=== PATIENT | male | born 1950 | race Caucasian/White ===

== ENCOUNTER 2016-11-03 06:11 | Emergency (ER) | payer BC, OTHER ==
[~2016-11-03] VITALS: Ht 170.2 cm; Wt 76.7 kg
[2016-11-03 06:15] VITALS: TEMP 36.6; Ht 170.2 cm; Wt 76.7 kg
[2016-11-03] MEDS ORDERED: ALBUT/IPRATROP 3MG/0.5MG NEB 3 ML VIAL INH STA ×2 (06:33→08:17)
--- NOTE | 2016-11-03 06:37 | EMERGENCY ROOM VISIT NOTE ---
History Report prepared by Nohemi: Briana Dhaliwal Under the Supervision of: Dr. Franco Vizcaino M.D. First contact with patient: 06:28 Chief Complaint: CONGESTION Stated Complaint: HARD TO BREATHE,CONGESTION History of Present Illness The patient is a 66 year old male who presents to the Emergency Room with complaints of shortness of breath beginning over the last few days. The patient states that he has also had a sorethroat, headache, and sometimes a productive cough and that he was unable to sleep last night due to the pain. The patient denies having a fever. He states that he has been working in his basement for a week, which has mold. The patient states that he smokes and that he is not on any medication. He denies having a history of allergies or asthma. Source of History: patient Onset: the last few days Position: other (global) Quality: other (shortness of breath) Associated Symptoms: + headache, + sorethroat, No fevers Review of Systems See HPI for pertinent positives & negatives. A total of 10 systems reviewed and were otherwise negative. Past Medical & Surgical Medical Problems: (1) Shoulder sprain Family History No pertinent family history stated. Social History Smoking Status: Current Every Day Smoker Current/Historical Medications Scheduled Azithromycin (Zithromax Z-Azar), 1 PKT PO UD Prednisone (Prednisone), 50 MG PO DAILY Allergies Coded Allergies: No Known Allergies (Unverified , 11/03/16) Physical Exam Vital Signs Date Time Temp Pulse Resp B/P (MAP) Pulse Ox O2 Delivery O2 Flow Rate FiO2 11/03/16 09:26 75 18 161/90 95 11/03/16 08:40 77 16 163/103 99 Nebulizer 11/03/16 08:16 92 Room Air 11/03/16 07:58 94 Room Air 11/03/16 07:58 88 Room Air 11/03/16 07:47 80 22 144/88 94 Room Air 11/03/16 07:39 77 22 153/88 92 Room Air 11/03/16 07:20 73 11/03/16 07:17 93 Room Air 11/03/16 07:16 76 22 156/103 94 Room Air 11/03/16 06:58 95 Room Air 11/03/16 06:15 36.6 89 18 227/144 96 Room Air Physical Exam GENERAL: Patient is mild uncomfortable appearing and in minimal distress. HEENT: No acute trauma, normocephalic atraumatic, mucous membranes moist, no scleral icterus.Mild erythema of bilateral nares and posterior pharynx. NECK: No stridor, no adenopathy, no meningismus, trachea is midline. LUNGS: Faint wheezing at bases bilaterally. HEART: Regular rate and rhythm. No murmurs, rubs, gallops appreciated. ABDOMEN: Soft, nontender, bowel sounds positive, no masses appreciated, no peritonitis. BACK: No midline tenderness, no CVA tenderness EXTREMITIES: Normal motion all extremities, no cyanosis, no edema. NEUROLOGIC: Alert and oriented, no acute motor or sensory deficits, no focal weakness, cranial nerves grossly intact. SKIN: No rash, no jaundice, no diaphoresis. Medical Decision & Procedures ER Provider Diagnostic Interpretation: X ray results are stated below per my interpretation and the radiologist's interpretation. CHEST ONE VIEW PORTABLE HISTORY: Short of breath. COMPARISON: None. FINDINGS: No pneumothorax. No pleural effusions. The heart is mildly enlarged. The upper lung zones are clear. Hazy bibasilar densities with mild interstitial thickening. Prominence of the superior mediastinum favors a tortuous thoracic aorta. IMPRESSION: 1. Bibasilar hazy airspace opacity with mild interstitial thickening. This could be chronic or due to a nonspecific pneumonitis. 2. Prominence of the superior mediastinum which is likely secondary to the tortuous thoracic aorta. Electronically signed by: Vidal Wheatley M.D. 11/03/2016 7:43 AM Dictated Date/Time: 11/03/2016 7:40 AM Laboratory Results 11/03/16 06:50 Red Blood Count 4.87, Mean Corpuscular Volume 97.5, Mean Corpuscular Hemoglobin 33.3, Mean Corpuscular Hemoglobin Concent 34.1, Mean Platelet Volume 9.9, Neutrophils (%) (Auto) 71.6, Lymphocytes (%) (Auto) 16.2, Monocytes (%) (Auto) 10.6, Eosinophils (%) (Auto) 1.3, Basophils (%) (Auto) 0.2, Neutrophils # (Auto ) 6.38, Lymphocytes # (Auto) 1.45, Monocytes # (Auto) 0.95, Eosinophils # (Auto ) 0.12, Basophils # (Auto) 0.02 11/03/16 06:50 Test 11/03/16 06:50 White Blood Count 8.93 K/uL (4.8-10.8) Red Blood Count 4.87 M/uL (4.7-6.1) Hemoglobin 16.2 g/dL (14.0-18.0) Hematocrit 47.5 % (42-52) Mean Corpuscular Volume 97.5 fL (80-100) Mean Corpuscular Hemoglobin 33.3 pg (25-34) Mean Corpuscular Hemoglobin Concent 34.1 g/dl (32-36) Platelet Count 218 K/uL (130-400) Mean Platelet Volume 9.9 fL (7.4-10.4) Neutrophils (%) (Auto) 71.6 % Lymphocytes (%) (Auto) 16.2 % Monocytes (%) (Auto) 10.6 % Eosinophils (%) (Auto) 1.3 % Basophils (%) (Auto) 0.2 % Neutrophils # (Auto) 6.38 K/uL (1.4-6.5) Lymphocytes # (Auto) 1.45 K/uL (1.2-3.4) Monocytes # (Auto) 0.95 K/uL (0.11-0.59) Eosinophils # (Auto) 0.12 K/uL (0-0.5) Basophils # (Auto) 0.02 K/uL (0-0.2) RDW Standard Deviation 50.5 fL (36.4-46.3) RDW Coefficient of Variation 14.1 % (11.5-14.5) Immature Granulocyte % (Auto) 0.1 % Immature Granulocyte # (Auto) 0.01 K/uL (0.00-0.02) Anion Gap 6.0 mmol/L (3-11) Est Creatinine Clear Calc Drug Dose 76.0 ml/min Estimated GFR () 102.8 Estimated GFR (Non- 88.7 BUN/Creatinine Ratio 20.5 (10-20) Calcium Level 9.4 mg/dl (8.5-10.1) Troponin I < 0.015 ng/ml (0-0.045) Laboratory results as reviewed by me. Medications Administered Medications (Trade) Dose Ordered Sig/Julio Cesar Route Start Time Stop Time Status Last Admin Dose Admin Dexamethasone Sodium Phosphate (Decadron Inj) 10 mg NOW ONCE IV 8/12/17 06:45 11/03/16 06:46 DC 11/03/16 07:03 10 MG Albuterol/ Ipratropium (Duoneb) 3 ml NOW STAT INH 11/03/16 06:33 11/03/16 06:35 DC 11/03/16 07:03 3 ML Albuterol/ Ipratropium (Duoneb) 3 ml NOW STAT INH 11/03/16 08:17 11/03/16 08:18 DC 11/03/16 08:39 3 ML Azithromycin (Zithromax Tab) 500 mg NOW STAT PO 11/03/16 09:10 11/03/16 09:11 DC 11/03/16 09:17 500 MG Albuterol (Ventolin Hfa Inhaler) 2 puffs NOW ONCE INH 11/03/16 09:15 11/03/16 09:16 DC 11/03/16 09:17 2 PUFFS ECG Indication: SOB/dyspnea Rate (beats per minute): 73 Rhythm: normal sinus Findings: RBBB, no acute ischemic change, no ectopy ED Course 0629: The patient was evaluated in room B2. A complete history and physical exam was performed. 0633: Ordered Duoneb 3 ml INH. 0645: Ordered Decadron Inj 10 mg IV. 0724: The patient's blood pressure was rechecked and it was not in the 200's, so we are cancelling the Labetalol. 0816: The patient fell asleep and was mildly hypoxic. He will be given another breathing treatment. 0817: Ordered Duoneb 3 ml INH. 0910: Ordered Azithromycin 500 mg PO. 0911: He feels much better. I discussed his elevated blood pressure with him and that he should follow up with his PCP. 191: Ordered Albuterol 2 puffs INH. 0930: Reevaluated the patient. Discussed results and discharge instructions: He verbalized understanding and agreement. The patient is ready for discharge. Medical Decision 66 yr old male heavy smoker who has been working in moldy house arrives with sinus congestion, pneumonitis, and mild wheezing. Breathing treatment with some mild hypoxia though I susepect this was more post neb treatment as when I went in to talk with him O2 sats in upper 90s on RA. Repeat neb and doing well. Feeling much better. No clear evidence of overt fungal infection and denies immune suppression thus will treat as bronchitis in smoker and monitor as outpatient. HTN initially documented then EKG/Trop, but BP came down prior to requiring anti-hypertensives. Advised outpatient follow up for this. Medication Reconcilliation Current Medication List: was personally reviewed by me Blood Pressure Screening Patient's blood pressure: Elevated blood pressure Blood pressure disposition: Referred to PCP Impression Primary Impression: Pneumonitis Additional Impressions: Bronchitis Sinus congestion Hypertension Critical Care I have personally spent greater than 35 minutes of critical care time in the direct management of this patient. This was a life/limb threatening event. This includes time spent evaluating patient, direct bedside care, chart review, placing orders, interpretation of diagnostic studies, discussion with consultants, patient, and family members, as well as other required patient management activities. This 35 minutes is in excess of all separately billable procedures. Scribe Attestation The scribe's documentation has been prepared under my direction and personally reviewed by me in its entirety. I confirm that the note above accurately reflects all work, treatment, procedures, and medical decision making performed by me. Departure Information Dispostion Home / Self-Care Prescriptions Prednisone (PREDNISONE) 50 Mg Tab 50 MG PO DAILY for 5 Days, #5 TAB Prov: Franco Vizcaino M.D. 11/03/16 Azithromycin (ZITHROMAX Z-AZAR) 250 Mg Tab 1 PKT PO UD, #1 PKT Prov: Franco Vizcaino M.D. 11/03/16 Referrals No Doctor, Assigned (PCP) Patient Instructions My [facility] Additional Instructions Keep well hydrated and avoid further exposure to mold and other allergens. Use a mask if you are working in these environments. Return if worsening breathing, chest pain, headache, fevers or other concerns. Please discuss your symptoms with your primary provider. Your blood pressure was elevated during this visit. This is quite common in many people who are being evaluated in the Emergency Department for many reasons. However, it is important that you have your Primary Care Provider recheck your blood pressure and discuss whether treatment will be needed. terminal gauger elevated blood pressure can lead to strokes, heart attacks, kidney failure amongst other medical issues. If you develop severe headaches, chest pain, weakness in arms or legs, or other concerning symptoms call 911. Problem Qualifiers
[2016-11-03] MEDS ORDERED: DEXAMETHASONE SOD INJ 10 MG/ML VIAL IV ONE (06:45)
[2016-11-03] MEDS ORDERED: LABETALOL HCL IV 5 MG/ML 20ML IV STA (07:03)
[2016-11-03 07:13] LABS: BASO % 0.2 %; BASO ABS # 0.02 K/uL (0-0.2); COMPLETE YES; EOS % 1.3 %; HEMATOCRIT 47.5 % (42-52); IG% 0.1 %; LYMPH % 16.2 %; LYMPH ABS # 1.45 K/uL (1.2-3.4); MEAN CELL VOLUME 97.5 fL (80-100); MEAN CORPUSCULAR HEMOGLOBIN 33.3 pg (25-34); MEAN CORPUSCULAR HGB CONC 34.1 g/dl (32-36); MEAN PLATELET VOLUME 9.9 fL (7.4-10.4); MONO % 10.6 %; NEUT % 71.6 %; PLATELET COUNT 218 K/uL (130-400); RED BLOOD COUNT 4.87 M/uL (4.7-6.1); WHITE BLOOD COUNT 8.93 K/uL (4.8-10.8)
[2016-11-03 07:30] LABS: BLOOD UREA NITROGEN 18 mg/dl (7-18); BUN/CREATININE RATIO 20.5 (10-20); CALCIUM 9.4 mg/dl (8.5-10.1); CARBON DIOXIDE 27 mmol/L (21-32); CHLORIDE 107 mmol/L (98-107); CREATININE 0.87 mg/dl (0.60-1.40); GLUCOSE 115 mg/dl (70-99); POTASSIUM 4.2 mmol/L (3.5-5.1); SODIUM 140 mmol/L (136-145)
--- NOTE | 2016-11-03 07:45 | DIAGNOSTIC IMAGING REPORT ---
CHEST ONE VIEW PORTABLE HISTORY: Short of breath. COMPARISON: None. FINDINGS: No pneumothorax. No pleural effusions. The heart is mildly enlarged. The upper lung zones are clear. Hazy bibasilar densities with mild interstitial thickening. Prominence of the superior mediastinum favors a tortuous thoracic aorta. IMPRESSION: 1. Bibasilar hazy airspace opacity with mild interstitial thickening. This could be chronic or due to a nonspecific pneumonitis. 2. Prominence of the superior mediastinum which is likely secondary to the tortuous thoracic aorta. Electronically signed by: Vidal Wheatley M.D. 11/03/2016 7:43 AM Dictated Date/Time: 11/03/2016 7:40 AM
[2016-11-03 08:16] VITALS: O2SAT 92
[2016-11-03] MEDS ORDERED: AZITHROMYCIN 250 MG TAB PO STA (09:10)
[2016-11-03] MEDS ORDERED: PRED50TA PO (09:13)
[2016-11-03] MEDS ORDERED: AZITTAB PO (09:13)
[2016-11-03] MEDS ORDERED: ALBUTEROL HFA 8 GM INHALER INH ONE (09:15)
[2016-11-03 09:26] VITALS: BP 161/90; PULSE 75; O2SAT 95
== END 2016-11-03 09:27 | disposition home or self-care (01) ==
LOC: C.EDB 06:13
DX: J18.9 Pneumonia, unspecified organism (principal); J40 Bronchitis, not specified as acute or chronic; J34.9 Unspecified disorder of nose and nasal sinuses; I10 Essential (primary) hypertension; F17.200 Nicotine dependence, unspecified, uncomplicated

== ENCOUNTER 2016-12-05 18:21 | Emergency (ER) | payer OTHER ==
[~2016-12-05] VITALS: Ht 172.7 cm; Wt 75.0 kg
[2016-12-05 18:35] VITALS: TEMP 36.8; Ht 172.7 cm; Wt 75.0 kg
[2016-12-05 18:36] VITALS: O2SAT 94
[2016-12-05] MEDS ORDERED: LORAZEPAM 2 MG/ML 1 ML VIAL IV STA (19:08)
[2016-12-05] MEDS ORDERED: CLONIDINE HCL 0.3 MG/24 HR TRANSDERM SYS TD STA (19:08)
[2016-12-05] MEDS ORDERED: THIAMINE HCL 100 MG TAB PO STA (19:08)
[2016-12-05] MEDS ORDERED: SODIUM CHLORIDE 0.9% 1000ML 1,000 ML IV STA (19:08)
[2016-12-05] MEDS ORDERED: OPTIRAY 320 IV PRN (19:15)
[2016-12-05 19:38] LABS: ISTAT CREATININE 1.2 mg/dl (0.6-1.3); ISTAT HEMOGLOBIN 15.3 g/dl (14.0-18.0); ISTAT IONIZED CALCIUM 1.08 mmol/l (1.12-1.32)
--- NOTE | 2016-12-05 20:05 | EMERGENCY ROOM VISIT NOTE ---
History Report prepared by Nohemi: Ashley Irvin Under the Supervision of: Dr. Nabeel Garcia M.D. First contact with patient: 19:05 Chief Complaint: ALCOHOL OVERDOSE Stated Complaint: ILLNESS, POSSIBLE ETOH Nursing Triage Summary: Pt arrived via ambulance BLS. EMS was called by pts friend. Pts friend said that he went to the pts house and the pt was not acting right. When EMS arrived the house was very deshevled and there were empty alcohol bottles laying all over the house. Pt was unable to walk or answer any questions. Pt speaks only [place]. Pts friend states that he has been drinking nonstop since his summer job ended at [employer]. Pt stated to his friend that he drinks because he has abdominal pain and a headache all the time. Pt is AO x2. Pt could not answer how much he has drank today but did state that he has been drinking all day. Pt is unkempt in appearance and has been incontinent of urine. History of Present Illness The patient is a 66 year old male who presents to the Emergency Room with complaints of an episode of alcohol intoxication beginning just [employer]. The patient 's friend states that the patient has not been feeling well for the last few weeks and his symptoms have been worsened from drinking. The patient notes that he drinks 1 bottle of whisky a day. He complains of abdominal pain and head pain. He denies any Source of History: patient Onset: just [employer] Position: other (global) Quality: other (alcohol intoxication) Timing: other (episode) Associated Symptoms: + headache, + abdominal pain Review of Systems See HPI for pertinent positives & negatives. A total of 10 systems reviewed and were otherwise negative. Past Medical & Surgical Medical Problems: (1) Shoulder sprain Family History No pertinent family history stated. Social History Smoking Status: Unknown if Ever Smoked Marital Status: Housing Status: lives with family Occupation Status: retired Current/Historical Medications Scheduled Folic Acid (Folvite), 1 TAB PO DAILY Ondasetron Odt (Zofran Odt), 4 MG SL Q6H Thiamine Hcl (Vitamin B-1), 100 MG PO DAILY Allergies Coded Allergies: No Known Allergies (Unverified , 12/05/16) Physical Exam Vital Signs Date Time Temp Pulse Resp B/P (MAP) Pulse Ox O2 Delivery O2 Flow Rate FiO2 12/05/16 21:18 83 18 162/90 95 Room Air 12/05/16 20:41 81 20 148/88 95 Room Air 12/05/16 19:03 84 12/05/16 18:36 94 Room Air 12/05/16 18:35 36.8 89 18 146/92 93 Room Air Physical Exam GENERAL: Patient is a healthy-appearing well-nourished male, smells of alcohol HEAD: Normocephalic atraumatic EYES: Ocular movements intact pupils equal and react to light OROPHARYNX mucous membranes are moist no exudates present no erythema or edema present NECK: Supple no nuchal rigidity CHEST: Good equal expansion LUNGS: Clear and equal to auscultation CARDIAC: Normal S1 and S2 ABDOMEN: Soft nontender no guarding BACK: No CVA tenderness EXTREMITIES: No pain upon palpation normal muscle strength in all groups no clubbing cyanosis or edema NEURO: Patient is following commands and answering questions appropriately. Alert and oriented x3 Cranial Nerves 2-12 grossly intact Medical Decision & Procedures ER Provider Diagnostic Interpretation: CT results as stated below per my review and radiologist interpretation: ABD/PELVIS IV CONTRAST ONLY COMPARISON STUDY: None. FINDINGS: Minimal basilar dependent atelectasis. Fatty infiltration of liver. Probable hemangioma central right hepatic lobe. Gallbladder is negative for distention. Pancreas is uniform. Kidneys negative for hydronephrosis. The adrenal glands are normal. Bowel pattern within the abdomen and pelvis is nonobstructive. Bladder is midline. The appendix is normal. There is no significant abdominal pelvic or inguinal adenopathy. IMPRESSION: No acute process the abdomen or pelvis. Mild fatty infiltration of the liver. The above report was generated using voice recognition software. It may contain grammatical, syntax or spelling errors. Electronically signed by: Inocencio Live M.D. 12/05/2016 8:42 PM Dictated Date/Time: 12/05/2016 8:40 PM HEAD WITHOUT CONTRAST (CT) Comparison: None. Findings: The paranasal sinuses and mastoid air cells are clear. The calvarium and skull base are intact. The ventricles and sulci are within normal limits. There is no mass, hematoma, midline shift, or acute infarct. Impression: No acute intracranial abnormality. The above report was generated using voice recognition software. It may contain grammatical, syntax or spelling errors. Electronically signed by: Inocencio Live M.D. 12/05/2016 8:28 PM Dictated Date/Time: 12/05/2016 8:27 PM Laboratory Results 12/05/16 19:19 Red Blood Count 4.40, Mean Corpuscular Volume 96.4, Mean Corpuscular Hemoglobin 33.9, Mean Corpuscular Hemoglobin Concent 35.1, Mean Platelet Volume 8.8, Neutrophils (%) (Auto) 49.3, Lymphocytes (%) (Auto) 41.5, Monocytes (%) (Auto) 8.0, Eosinophils (%) (Auto) 0.6, Basophils (%) (Auto) 0.4, Neutrophils # (Auto) 2.64, Lymphocytes # (Auto) 2.22, Monocytes # (Auto) 0.43, Eosinophils # (Auto) 0.03, Basophils # (Auto) 0.02 12/05/16 19:19 Test 12/05/16 19:19 12/05/16 19:25 12/05/16 19:28 White Blood Count 5.35 K/uL (4.8-10.8) Red Blood Count 4.40 M/uL (4.7-6.1) Hemoglobin 14.9 g/dL (14.0-18.0) Hematocrit 42.4 % (42-52) Mean Corpuscular Volume 96.4 fL (80-100) Mean Corpuscular Hemoglobin 33.9 pg (25-34) Mean Corpuscular Hemoglobin Concent 35.1 g/dl (32-36) Platelet Count 221 K/uL (130-400) Mean Platelet Volume 8.8 fL (7.4-10.4) Neutrophils (%) (Auto) 49.3 % Lymphocytes (%) (Auto) 41.5 % Monocytes (%) (Auto) 8.0 % Eosinophils (%) (Auto) 0.6 % Basophils (%) (Auto) 0.4 % Neutrophils # (Auto) 2.64 K/uL (1.4-6.5) Lymphocytes # (Auto) 2.22 K/uL (1.2-3.4) Monocytes # (Auto) 0.43 K/uL (0.11-0.59) Eosinophils # (Auto) 0.03 K/uL (0-0.5) Basophils # (Auto) 0.02 K/uL (0-0.2) RDW Standard Deviation 46.7 fL (36.4-46.3) RDW Coefficient of Variation 13.2 % (11.5-14.5) Immature Granulocyte % (Auto) 0.2 % Immature Granulocyte # (Auto) 0.01 K/uL (0.00-0.02) Est Creatinine Clear Calc Drug Dose 81.4 ml/min Estimated GFR () 104.3 Estimated GFR (Non- 90.0 BUN/Creatinine Ratio 9.8 (10-20) Calcium Level 8.9 mg/dl (8.5-10.1) Total Bilirubin 0.2 mg/dl (0.2-1) Direct Bilirubin 0.1 mg/dl (0-0.2) Aspartate Amino Transf (AST/SGOT) 40 U/L (15-37) Alanine Aminotransferase (ALT/SGPT) 62 U/L (12-78) Alkaline Phosphatase 95 U/L (45-117) Total Protein 6.7 gm/dl (6.4-8.2) Albumin 3.3 gm/dl (3.4-5.0) Lipase 192 U/L (73-393) Ethyl Alcohol mg/dL 293.0 mg/dl (0-3) Bedside Hemoglobin 15.3 g/dl (14.0-18.0) Bedside Hematocrit 45 % (42-52) Bedside Sodium 144 mEq/L (135-144) Bedside Potassium 3.9 mEq/L (3.3-5.0) Bedside Chloride 104 mEq/L (101-112) Bedside Total CO2 24 mEq/l (24-31) Anion Gap 21.0 mmol/L (16-25) Bedside Blood Urea Nitrogen 6 mg/dl (7-18) Bedside Creatinine 1.2 mg/dl (0.6-1.3) Bedside Glucose (other) 91 mg/dl (70-99) Bedside Ionized Calcium (Robert) 1.08 mmol/l (1.12-1.32) Urine Color YELLOW Urine Appearance CLEAR (CLEAR) Urine pH 5.0 (4.5-7.5) Urine Specific Whitney 1.017 (1.000-1.030) Urine Protein NEG (NEG) Urine Glucose (UA) NEG (NEG) Urine Ketones NEG (NEG) Urine Occult Blood NEG (NEG) Urine Nitrite NEG (NEG) Urine Bilirubin NEG (NEG) Urine Urobilinogen NEG (NEG) Urine Leukocyte Esterase NEG (NEG) Labs reviewed by ED physician. Medications Administered Medications (Trade) Dose Ordered Sig/Julio Cesar Route Start Time Stop Time Status Last Admin Dose Admin Thiamine HCl (Vitamin B-1 Tab) 100 mg NOW STAT PO 12/05/16 19:08 12/05/16 19:12 DC 12/05/16 19:38 100 MG Folic Acid (Folvite Tab) 1 mg NOW STAT PO 12/05/16 19:08 12/05/16 19:12 DC 12/05/16 19:38 1 MG Clonidine HCl ([id number] 0.3mg/24hr Patch) 1 patch NOW STAT TD 12/05/16 19:08 12/05/16 19:12 DC 12/05/16 19:39 1 PATCH Lorazepam (Ativan Inj) 1 mg NOW STAT IV 12/05/16 19:08 12/05/16 19:12 DC 12/05/16 19:37 1 MG Sodium Chloride 1,000 ml @ 999 mls/hr Q1H1M STAT IV 12/05/16 19:08 12/05/16 20:08 DC 12/05/16 17:40 999 MLS/HR ED Course 1904: Past medical records reviewed. The patient was evaluated in room A2. A complete history and physical examination was performed. 1907: Sodium Chloride 1000 ml @ 999 mls/hr IV, Ativan Inj 1mg IV, Clonidine HCl 1 patch TD, Folic Acid 1mg PO, Thiamine HCl 100mg PO. 2118: I reevaluated and updated the patient. He recommended admission and rehabilitation and he would like to go home. 2125: Upon reexamination the patient is doing well. I discussed results and treatment plan with the patient. He verbalizes agreement and understanding. The patient is ready for discharge. Medical Decision Differential diagnosis: Etiologies such as appendicitis, diverticulitis, PUD, biliary pathology, UTI, pancreatitis, obstruction, mesenteric ischemia, aortic pathology, infections, inflammatory bowel disease, renal colic, as well as others were entertained. This is a 66-year-old male who presents emergency department complaining of alcohol intoxication. I strongly recommended to the patient that he be there admitted or discharged to a rehabilitation center however the patient is adamantly refusing and wishes to go home. He was complaining of a headache as well as abdominal pain however he has a benign abdominal examination. Based on the patient's past medical history he was given thiamine as well as folic acid here in the emergency department along with a bolus of fluid. He was also given a clonidine patch to prevent withdrawal. Repeat examination revealed improvement the patient's symptoms. The patient was found to be intoxicated however has a normal CBC normal renal profile normal liver profile. I again strongly recommended to the patient that he either be admitted discharged to rehabilitation facility however the patient is again refusing. Case management did meet with the patient to attempt to get him into a rehabilitation center. Medication Reconcilliation Current Medication List: was personally reviewed by me Blood Pressure Screening Patient's blood pressure: Elevated blood pressure Blood pressure disposition: Did not require urgent referral Impression Primary Impression: Alcohol intoxication Additional Impression: HTN (hypertension) Scribe Attestation The scribe's documentation has been prepared under my direction and personally reviewed by me in its entirety. I confirm that the note above accurately reflects all work, treatment, procedures, and medical decision making performed by me. Departure Information Dispostion Home / Self-Care Prescriptions Ondasetron Odt (ZOFRAN ODT) 4 Mg Tab 4 MG SL Q6H for Nausea, #6 TAB Prov: Nabeel Garcia MD 12/05/16 Folic Acid (FOLVITE) 1 Mg Tab 1 TAB PO DAILY for 30 Days, #30 TAB Prov: Nabeel Garcia MD 12/05/16 Thiamine Hcl (Vitamin B-1) 100 Mg Tab 100 MG PO DAILY for 30 Days, #30 TAB Prov: Nabeel Garcia MD 12/05/16 Referrals No Doctor, Assigned (PCP) Forms HOME CARE DOCUMENTATION FORM, IMPORTANT VISIT INFORMATION Patient Instructions Alcohol Abuse - [facility], Hypertension Control, Hypertension Dc, My [facility] Additional Instructions You were found to have an elevated blood pressure today (>120 sytolic or >90 diastolic). Per medicare guidelines, you need to follow up with this blood pressure screening with your Primary Care Physician (PCP). For a new PCP call [phone]. follow up with rehab You have been examined and treated today on an emergency basis only. This is not a substitute for, or an effort to provide, complete comprehensive medical care. It is impossible to recognize and treat all injuries or illnesses in a single emergency department visit. It is therefore important that you follow up closely with your PCP. Call as soon as possible for an appointment. Thank you for your time and consideration. I look forward to speaking with you again soon. Please don't hesitate to call us if you have any questions. Problem Qualifiers Primary Impression: Alcohol intoxication Complication of substance-induced condition: uncomplicated Qualified Codes: F10.920 - Alcohol use, unspecified with intoxication, uncomplicated Additional Impression: HTN (hypertension) Hypertension type: unspecified Qualified Codes: I10 - Essential (primary) hypertension
[2016-12-05 20:06] LABS: URINE APPEARANCE CLEAR (CLEAR); URINE BILIRUBIN NEG (NEG); URINE COLOR YELLOW; URINE NITRITE NEG (NEG); URINE SPECIFIC GRAVITY 1.017 (1.000-1.030); UROBILINOGEN NEG (NEG)
[2016-12-05 20:07] LABS: BASO % 0.4 %; BASO ABS # 0.02 K/uL (0-0.2); COMPLETE YES; EOS % 0.6 %; HEMATOCRIT 42.4 % (42-52); IG% 0.2 %; LYMPH % 41.5 %; LYMPH ABS # 2.22 K/uL (1.2-3.4); MEAN CELL VOLUME 96.4 fL (80-100); MEAN CORPUSCULAR HEMOGLOBIN 33.9 pg (25-34); MEAN CORPUSCULAR HGB CONC 35.1 g/dl (32-36); MEAN PLATELET VOLUME 8.8 fL (7.4-10.4); NEUT % 49.3 %; PLATELET COUNT 221 K/uL (130-400); WHITE BLOOD COUNT 5.35 K/uL (4.8-10.8)
[2016-12-05 20:27] LABS: BUN/CREATININE RATIO 9.8 (10-20); CALCIUM 8.9 mg/dl (8.5-10.1); CREATININE 0.84 mg/dl (0.60-1.40); POTASSIUM 3.8 mmol/L (3.5-5.1)
[2016-12-05 20:28] LABS: MANUAL MICROSCOPIC REQUIRED? NO; REVIEW REQ? NO
--- NOTE | 2016-12-05 20:32 | DIAGNOSTIC IMAGING REPORT ---
HEAD WITHOUT CONTRAST (CT) CT DOSE: 638.56 mGycm HISTORY: Mental status change Pt c/o head pain TECHNIQUE: Multiaxial CT images of the head were performed without the use of intravenous contrast. A dose lowering technique was utilized adhering to the principles of ALARA. Comparison: None. Findings: The paranasal sinuses and mastoid air cells are clear. The calvarium and skull base are intact. The ventricles and sulci are within normal limits. There is no mass, hematoma, midline shift, or acute infarct. Impression: No acute intracranial abnormality. The above report was generated using voice recognition software. It may contain grammatical, syntax or spelling errors. Electronically signed by: Inocencio Live M.D. 12/05/2016 8:28 PM Dictated Date/Time: 12/05/2016 8:27 PM
--- NOTE | 2016-12-05 20:43 | DIAGNOSTIC IMAGING REPORT ---
ABD/PELVIS IV CONTRAST ONLY CT DOSE: 1041.60 mGycm HISTORY: Pain Pt c/o diffuse abd pain TECHNIQUE: Multiaxial CT images of the abdomen and pelvis were performed following the use of intravenous contrast. A dose lowering technique was utilized adhering to the principles of ALARA. COMPARISON STUDY: None. FINDINGS: Minimal basilar dependent atelectasis. Fatty infiltration of liver. Probable hemangioma central right hepatic lobe. Gallbladder is negative for distention. Pancreas is uniform. Kidneys negative for hydronephrosis. The adrenal glands are normal. Bowel pattern within the abdomen and pelvis is nonobstructive. Bladder is midline. The appendix is normal. There is no significant abdominal pelvic or inguinal adenopathy. IMPRESSION: No acute process the abdomen or pelvis. Mild fatty infiltration of the liver. The above report was generated using voice recognition software. It may contain grammatical, syntax or spelling errors. Electronically signed by: Inocencio Live M.D. 12/05/2016 8:42 PM Dictated Date/Time: 12/05/2016 8:40 PM
[2016-12-05 21:18] VITALS: BP 162/90; PULSE 83; O2SAT 95
[2016-12-05] MEDS ORDERED: FOLI1TAB7 PO (21:21)
[2016-12-05] MEDS ORDERED: THIA100T11 PO (21:21)
[2016-12-05] MEDS ORDERED: ONDA4TAB10 SL (21:21)
== END 2016-12-05 21:40 | disposition home or self-care (01) ==
LOC: EDBD 18:21 → C.EDA 18:23
DX: F10.920 Alcohol use, unspecified with intoxication, uncomplicated (principal); I10 Essential (primary) hypertension

== ENCOUNTER 2016-12-20 14:02 | Inpatient (IN) | payer OTHER ==
[~2016-12-20] VITALS: Ht 175.3 cm; Wt 78.5 kg
[~2016-12-20 14:02] MED LIST: FOLI1TAB7 PO; ONDA4TAB10 SL; THIA100T11 PO
--- NOTE | 2016-12-20 14:15 | EMERGENCY ROOM VISIT NOTE ---
History Report prepared by Nohemi: Cali Martinez Under the Supervision of: Dr. Cassie Stroud D.O. First contact with patient: 14:07 Stated Complaint: ALCOHOL OVERDOSE History of Present Illness The patient is a 66 year old male who presents to the Emergency Room with a persistent alcohol overdose that started prior to arrival today. He says that he was drinking alcohol today, and he typically drinks vodka everyday. Patient denies any trauma. The patient denies any pain. History limited secondary to patient's intoxication. Per additional nursing information, office of aging without to check up on the patient as he has been here recently for alcohol intoxication. They found the patient intoxicated at that time he made a suicidal statement to them. They called EMS and patient was transferred to the ER. On review of EMR, patient seen here 2 weeks ago for alcohol intoxication and was seen by case management and encouraged to go to rehabilitation. Patient refused. Source of History: patient History Limited By: intoxication Onset: Prior to arrival today Position: other (global - alcohol intoxication) Quality: other (on Vodka) Note: Associated symptoms: Denies any pain. Review of Systems ROS limited secondary to patient's intoxication. Past Medical & Surgical Medical Problems: (1) Shoulder sprain Family History No pertinent family history Social History Smoking Status: Unknown if Ever Smoked Marital Status: Housing Status: lives with family Occupation Status: retired Current/Historical Medications Unable to Obtain Active Prescriptions or Reported Meds Allergies Coded Allergies: No Known Allergies (Unverified , 12/05/16) Physical Exam Vital Signs Date Time Temp Pulse Resp B/P (MAP) Pulse Ox O2 Delivery O2 Flow Rate FiO2 12/20/16 16:47 92 20 95/57 91 Room Air 12/20/16 15:43 89 17 112/59 92 Room Air 12/20/16 14:34 89 137/96 97 Nasal Cannula 2.0 12/20/16 14:33 97 Nasal Cannula 2.0 12/20/16 14:16 36.8 95 24 182/168 98 Room Air 12/20/16 14:11 90 Physical Exam GENERAL: mildly intoxicated, smells of alcohol, alert, well appearing, well nourished, no distress EYE EXAM: normal conjunctiva, PERRL and EOM's grossly intact OROPHARYNX: no exudate, no erythema, lips, buccal mucosa, and tongue normal and mucous membranes are moist NECK: supple, no nuchal rigidity, no adenopathy, non-tender LUNGS: Clear to auscultation. Normal chest wall mechanics HEART: no murmurs, S1 normal and S2 normal ABDOMEN: abdomen soft, non-tender, normo-active bowel sounds, no masses, no rebound or guarding. BACK: Back is symmetrical on inspection and there is no deformity, no midline tenderness, no CVA tenderness. SKIN: no rashes and no bruising UPPER EXTREMITIES: upper extremities are grossly normal. Moving her family spontaneously and purposefully. LOWER EXTREMITIES: No pitting edema. Moving extremities spontaneously, purposefully. NEURO EXAM: Mildly intoxicated. No slurred speech, no facial droop, moving all 4 extremities properly. Medical Decision & Procedures ER Provider Diagnostic Interpretation: Radiology results have been interpreted by the radiologist and reviewed by me. HEAD WITHOUT CONTRAST (CT) CLINICAL HISTORY: 66 years-old Male presenting with etoh, ams. TECHNIQUE: Multidetector CT imaging of the head was performed without the use of intravenous contrast. IV contrast: None. A dose lowering technique was used consistent with the principles of ALARA (as low as reasonably achievable). COMPARISON: 12/05/2016. CT DOSE (mGy.cm): The estimated cumulative dose is 2204.05 mGycm. FINDINGS: Clinic Administrator topogram: Unremarkable. Ventricles and sulci normal in size. Brain parenchyma normal in appearance with preserved warren-white differentiation. No mass effect or midline shift. No hemorrhage or acute territorial infarct. No extra-axial fluid collection. Polypoid mucosal thickening in the maxillary sinuses. Calvarium intact. IMPRESSION: 1. No acute intracranial pathology. Electronically signed by: Patricio Zuñiga M.D. 12/20/2016 3:19 PM Dictated Date/Time: 12/20/2016 3:16 PM CHEST ONE VIEW PORTABLE CLINICAL HISTORY: etoh dyspnea COMPARISON STUDY: 11/03/2016 FINDINGS: Minimal atelectatic change left base and left midlung. Lungs clear. No focal infiltrates. No evidence for cardiac enlargement. IMPRESSION: Minimal left basilar atelectasis. Otherwise negative study. The above report was generated using voice recognition software. It may contain grammatical, syntax or spelling errors. Electronically signed by: Inocencio Live M.D. 12/20/2016 2:28 PM Dictated Date/Time: 12/20/2016 2:27 PM CERVICAL SPINE W/O CT DOSE: 650.38 mGycm HISTORY: Altered mental status ethos TECHNIQUE: Multiaxial CT images of the cervical spine were performed and reformatted in the sagittal and coronal plane without the use of contrast. A dose lowering technique was utilized adhering to the principles of ALARA. COMPARISON: None. FINDINGS: Considerable degenerative disc changes throughout. No evidence for an acute compression deformity. No evidence for subluxation. Osteopenia. IMPRESSION: Considerable degenerative change. No acute bony abnormality The above report was generated using voice recognition software. It may contain grammatical, syntax or spelling errors. Electronically signed by: Inocencio Live M.D. 12/20/2016 3:19 PM Dictated Date/Time: 12/20/2016 3:17 PM Laboratory Results 12/20/16 15:39 Red Blood Count 4.76, Mean Corpuscular Volume 96.8, Mean Corpuscular Hemoglobin 33.6, Mean Corpuscular Hemoglobin Concent 34.7, Mean Platelet Volume 8.8, Neutrophils (%) (Auto) 59.3, Lymphocytes (%) (Auto) 32.3, Monocytes (%) (Auto) 7.5, Eosinophils (%) (Auto) 0.2, Basophils (%) (Auto) 0.5, Neutrophils # (Auto) 3.80, Lymphocytes # (Auto) 2.07, Monocytes # (Auto) 0.48, Eosinophils # (Auto) 0.01, Basophils # (Auto) 0.03 12/20/16 15:39 Test 12/20/16 15:39 White Blood Count 6.40 K/uL (4.8-10.8) Red Blood Count 4.76 M/uL (4.7-6.1) Hemoglobin 16.0 g/dL (14.0-18.0) Hematocrit 46.1 % (42-52) Mean Corpuscular Volume 96.8 fL (80-100) Mean Corpuscular Hemoglobin 33.6 pg (25-34) Mean Corpuscular Hemoglobin Concent 34.7 g/dl (32-36) Platelet Count 154 K/uL (130-400) Mean Platelet Volume 8.8 fL (7.4-10.4) Neutrophils (%) (Auto) 59.3 % Lymphocytes (%) (Auto) 32.3 % Monocytes (%) (Auto) 7.5 % Eosinophils (%) (Auto) 0.2 % Basophils (%) (Auto) 0.5 % Neutrophils # (Auto) 3.80 K/uL (1.4-6.5) Lymphocytes # (Auto) 2.07 K/uL (1.2-3.4) Monocytes # (Auto) 0.48 K/uL (0.11-0.59) Eosinophils # (Auto) 0.01 K/uL (0-0.5) Basophils # (Auto) 0.03 K/uL (0-0.2) RDW Standard Deviation 51.8 fL (36.4-46.3) RDW Coefficient of Variation 14.7 % (11.5-14.5) Immature Granulocyte % (Auto) 0.2 % Immature Granulocyte # (Auto) 0.01 K/uL (0.00-0.02) Prothrombin Time 10.0 SECONDS (9.0-12.0) Prothromb Time International Ratio 0.9 (0.9-1.1) Anion Gap 15.0 mmol/L (3-11) Estimated GFR () 112.4 Estimated GFR (Non- 97.0 BUN/Creatinine Ratio 18.2 (10-20) Calcium Level 8.4 mg/dl (8.5-10.1) Magnesium Level 1.8 mg/dl (1.8-2.4) Total Bilirubin 0.5 mg/dl (0.2-1) Aspartate Amino Transf (AST/SGOT) 75 U/L (15-37) Alanine Aminotransferase (ALT/SGPT) 64 U/L (12-78) Alkaline Phosphatase 97 U/L (45-117) Troponin I < 0.015 ng/ml (0-0.045) Total Protein 6.8 gm/dl (6.4-8.2) Albumin 3.6 gm/dl (3.4-5.0) Globulin 3.2 gm/dl (2.5-4.0) Albumin/Globulin Ratio 1.1 (0.9-2) Lipase 150 U/L (73-393) Ethyl Alcohol mg/dL 372.0 mg/dl (0-3) Laboratory results per my review. ED Course 1409: The patient was evaluated in room B7. A limited history and physical exam was performed. 1758: I reevaluated the patient and he is resting comfortably, arouses easily, and talks. 1799: Ordered Folvite Tab 1 mg PO, Vitamin B-1 Tab 100 mg PO, NSS 1000 ml @ 999 mls/hr IV. 1951: Patient resting, well appearing otherwise and no complete this time. Patient awaiting sobriety and then evaluation by psychiatric cyanide case hardener given mention of suicidal ideation to [facility] earlier today while intoxicated. No evidence of alcohol withdrawal. Pt signed out to Dr. Carrasquillo. Medical Decision Differential diagnosis includes etiologies such as alcohol intoxication, toxicologic, infection, hypoglycemia, electrolyte abnormalities, cardiac sources , intracerebral event, neurologic, as well as others were entertained. Medication Reconcilliation Current Medication List: was personally reviewed by me Blood Pressure Screening Patient's blood pressure: Elevated blood pressure Blood pressure disposition: Elevated BP felt to be situational Impression Primary Impression: Alcohol intoxication Additional Impression: Alcohol abuse Scribe Attestation The scribe's documentation has been prepared under my direction and personally reviewed by me in its entirety. I confirm that the note above accurately reflects all work, treatment, procedures, and medical decision making performed by me. Departure Information Dispostion Still a Patient Prescriptions Unable to Obtain Active Prescriptions or Reported Meds Referrals No Doctor, Assigned (PCP) Problem Qualifiers Primary Impression: Alcohol intoxication Complication of substance-induced condition: uncomplicated Qualified Codes: F10.920 - Alcohol use, unspecified with intoxication, uncomplicated
--- NOTE | 2016-12-20 14:29 | DIAGNOSTIC IMAGING REPORT ---
CHEST ONE VIEW PORTABLE CLINICAL HISTORY: etoh dyspnea COMPARISON STUDY: 11/03/2016 FINDINGS: Minimal atelectatic change left base and left midlung. Lungs clear. No focal infiltrates. No evidence for cardiac enlargement. IMPRESSION: Minimal left basilar atelectasis. Otherwise negative study. The above report was generated using voice recognition software. It may contain grammatical, syntax or spelling errors. Electronically signed by: Inocencio Live M.D. 12/20/2016 2:28 PM Dictated Date/Time: 12/20/2016 2:27 PM
--- NOTE | 2016-12-20 15:20 | DIAGNOSTIC IMAGING REPORT ---
HEAD WITHOUT CONTRAST (CT) CLINICAL HISTORY: 66 years-old Male presenting with etoh, ams. TECHNIQUE: Multidetector CT imaging of the head was performed without the use of intravenous contrast. IV contrast: None. A dose lowering technique was used consistent with the principles of ALARA (as low as reasonably achievable). COMPARISON: 12/05/2016. CT DOSE (mGy.cm): The estimated cumulative dose is 2204.05 mGycm. FINDINGS: Manager Agency topogram: Unremarkable. Ventricles and sulci normal in size. Brain parenchyma normal in appearance with preserved warren-white differentiation. No mass effect or midline shift. No hemorrhage or acute territorial infarct. No extra-axial fluid collection. Polypoid mucosal thickening in the maxillary sinuses. Calvarium intact. IMPRESSION: 1. No acute intracranial pathology. Electronically signed by: Patricio Zuñiga M.D. 12/20/2016 3:19 PM Dictated Date/Time: 12/20/2016 3:16 PM
--- NOTE | 2016-12-20 15:21 | DIAGNOSTIC IMAGING REPORT ---
CERVICAL SPINE W/O CT DOSE: 650.38 mGycm HISTORY: Altered mental status ethos TECHNIQUE: Multiaxial CT images of the cervical spine were performed and reformatted in the sagittal and coronal plane without the use of contrast. A dose lowering technique was utilized adhering to the principles of ALARA. COMPARISON: None. FINDINGS: Considerable degenerative disc changes throughout. No evidence for an acute compression deformity. No evidence for subluxation. Osteopenia. IMPRESSION: Considerable degenerative change. No acute bony abnormality The above report was generated using voice recognition software. It may contain grammatical, syntax or spelling errors. Electronically signed by: Inocencio Live M.D. 12/20/2016 3:19 PM Dictated Date/Time: 12/20/2016 3:17 PM
[2016-12-20 15:57] LABS: BASO % 0.5 %; BASO ABS # 0.03 K/uL (0-0.2); COMPLETE YES; EOS % 0.2 %; HEMATOCRIT 46.1 % (42-52); IG% 0.2 %; LYMPH % 32.3 %; LYMPH ABS # 2.07 K/uL (1.2-3.4); MEAN CELL VOLUME 96.8 fL (80-100); MEAN CORPUSCULAR HEMOGLOBIN 33.6 pg (25-34); MEAN CORPUSCULAR HGB CONC 34.7 g/dl (32-36); MEAN PLATELET VOLUME 8.8 fL (7.4-10.4); MONO % 7.5 %; NEUT % 59.3 %; PLATELET COUNT 154 K/uL (130-400); RED BLOOD COUNT 4.76 M/uL (4.7-6.1)
[2016-12-20 16:06] LABS: INR 0.9 (0.9-1.1)
[2016-12-20 16:15] LABS: ALT/SGPT 64 U/L (12-78); AST/SGOT 75 U/L (15-37); BLOOD UREA NITROGEN 13 mg/dl (7-18); BUN/CREATININE RATIO 18.2 (10-20); CALCIUM 8.4 mg/dl (8.5-10.1); CARBON DIOXIDE 20 mmol/L (21-32); CHLORIDE 106 mmol/L (98-107); GLUCOSE 73 mg/dl (70-99); MAGNESIUM 1.8 mg/dl (1.8-2.4); SODIUM 141 mmol/L (136-145)
[2016-12-20 16:21] LABS: ALB/GLOB RATIO 1.1 (0.9-2); ALKALINE PHOSPHATASE 97 U/L (45-117)
[2016-12-20] MEDS ORDERED: THIAMINE HCL 100 MG TAB PO STA (18:00)
[2016-12-20] MEDS ORDERED: SODIUM CHLORIDE 0.9% 1000ML 1,000 ML IV STA (18:00)
--- NOTE | 2016-12-21 00:49 | EMERGENCY ROOM VISIT NOTE ---
ED Visit Note First contact with patient: 00:47 I received this patient at change of shift signout from Dr. Stroud. Please see her note for complete history and physical. The patient is a 58-year-old male who presented to the emergency department with acute alcohol intoxication but requiring a mental health evaluation. The patient's alcohol level was very elevated. He was observed in the emergency Department until his alcohol level could come down to a point where he was no longer clinically intoxicated and couldn't be evaluated by the mental health delegate. The patient was evaluated at approximately 12:45 am. He was no longer clinically intoxicated and is currently being evaluated by the mental health delegate to assess his risk of harm to self. Currently the patient is not clinically intoxicated. He still admits to wanting to continue to drink alcohol and at this time would not be a good candidate for rehabilitation or detox. He does not meet any criteria for 302 or other involuntary admission at this time. The patient was evaluated by the emergency Department mental health delegate. He was given information for follow-up. He was encouraged to follow-up with his family doctor soon as possible. He was also encouraged to stop drinking. He was also encouraged to call crisis or return to the emergency department immediately if symptoms change worsen or the need arises. I also discussed the case with the emergency Department case packer. They will try to talk to area agency on aging so the patient can be checked on again within the next 24 hours. When the patient was being reevaluated he develop significant chest pain and diaphoresis. The patient became very shaky. On evaluation in feel this represents some degree of alcohol withdrawal given that we have kept the patient here and his alcohol level has dropped significantly from presentation. This reason he was treated with IV benzodiazepines. I discussed his case with the on-call hospitalist. They've agreed to evaluate the patient in emergency apartment for further management and disposition.
[2016-12-21] MEDS ORDERED: LORAZEPAM 2 MG/ML 1 ML VIAL IV STA (01:43)
[2016-12-21] MEDS ORDERED: ONDANSETRON INJ 2 MG/ML 2 ML VIAL IV PRN (02:15)
[2016-12-21] MEDS ORDERED: POLYETHYLENE (MIRALAX) 17 GM PACK PO PRN (02:15)
[2016-12-21] MEDS ORDERED: LORAZEPAM 2 MG/ML 1 ML VIAL IV PRN ×2 (02:15→10:30)
[2016-12-21] MEDS ORDERED: ALUMINUM/MAGNESIUM/SIMETH (MAALOX MAX) 30 ML UDC PO PRN (02:15)
[2016-12-21] MEDS ORDERED: MAGNESIUM HYDROXIDE SUSP 30 ML UDC PO PRN (02:15)
[2016-12-21] MEDS ORDERED: MoRPHine SULFATE 2 MG/ML CARP IV PRN (02:15)
[2016-12-21] MEDS ORDERED: NITROGLYCERIN 0.4 MG SL PER TAB CHARGE SL PRN (02:15)
[2016-12-21] MEDS ORDERED: ACETAMINOPHEN 325 MG TAB PO PRN (02:15)
--- NOTE | 2016-12-21 03:04 | History and Physical ---
History & Physical Date & Time of Service: Dec 21, 2016 at 02:41 Chief Complaint: Alcohol Overdose Primary Care Physician: No Doctor, Assigned History of Present Illness Source: patient 66 y/o M Hx ETOH abuse. Pt was brought to the ER intoxicated when his called EMS and stated that he felt he was attempting to harm himself. He was retained in the ER for several hours to achieve sobriety and undergo a mental health evaluation. Following evaluation the pt was slated for DC, however, he developed rigors, diaphoresis and chest pain. He responded to 2mg of Ativan. The pt is a very poor historian. He admits to central CP but could not recall if he was short of breath, nauseous or lightheaded. He states that he has had CP a few times in the past. Family History No pertinent family history Social History Smoking Status: Unknown if Ever Smoked Marital Status: Occupational Status: retired Multi-Drug Resistant Organisms History of MDRO: No Allergies Coded Allergies: No Known Allergies (Unverified , 12/05/16) Home Medications Unable to Obtain Active Prescriptions or Reported Meds Review of Systems Admits to CP - cannot otherwise obtain a reliable ROS Constitutional: + sweats, + problem reported (Exibited rigors in ER), No fever , No chills Eyes: No worsening of vision, No eye pain ENT: No hearing loss, No unusual epistaxis Respiratory: No cough, No sputum, No wheezing Cardiovascular: No chest pain, No orthopnea, No PND Abdomen: + pain, + nausea, + vomiting Musculoskeletal: No joint pain Genitourinary - Male: No hematuria, No dysuria, No urinary frequency Neurologic: No memory loss, No paralysis, No weakness Psychiatric: + depression symptoms (reported by pt's ) Endocrine: No fatigue Hematologic / Lymphatic: No abnormal bleeding/bruising Integumentary: No rash Allergic / Immunologic: No environmental allergies Physical Exam Vital Signs Date Time Temp Pulse Resp B/P (MAP) Pulse Ox O2 Delivery O2 Flow Rate FiO2 12/21/16 02:03 73 16 167/97 93 Room Air 12/21/16 00:27 75 12/20/16 23:06 84 18 161/100 93 Room Air 12/20/16 21:34 92 Room Air 12/20/16 21:28 86 12/20/16 20:49 81 18 110/86 92 Room Air 12/20/16 18:45 88 18 108/83 91 Room Air 12/20/16 16:47 92 20 95/57 91 Room Air 12/20/16 15:43 89 17 112/59 92 Room Air 12/20/16 14:34 89 137/96 97 Nasal Cannula 2.0 12/20/16 14:33 97 Nasal Cannula 2.0 12/20/16 14:16 36.8 95 24 182/168 98 Room Air 12/20/16 14:11 90 General Appearance: WD/WN, no apparent distress Head: normocephalic Eyes: normal inspection ENT: normal ENT inspection, pharynx normal Neck: supple, no JVD Respiratory/Chest: chest non-tender, lungs clear, normal breath sounds Cardiovascular: regular rate, rhythm, no edema, no gallop Abdomen/GI: normal bowel sounds, non tender, soft Back: normal inspection, no CVA tenderness Extremities/Musculoskelatal: normal inspection, no calf tenderness, normal capillary refill Neurologic/Psych: oil exploration engineer II-XII nml as tested, no motor/sensory deficits, alert, oriented x 3 Skin: normal color, warm/dry Diagnostics Laboratory Results Results Past 24 Hours Test 12/20/16 15:39 Range/Units White Blood Count 6.40 4.8-10.8 K/uL Red Blood Count 4.76 4.7-6.1 M/uL Hemoglobin 16.0 14.0-18.0 g/dL Hematocrit 46.1 42-52 % Mean Corpuscular Volume 96.8 80-100 fL Mean Corpuscular Hemoglobin 33.6 25-34 pg Mean Corpuscular Hemoglobin Concent 34.7 32-36 g/dl Platelet Count 154 130-400 K/uL Mean Platelet Volume 8.8 7.4-10.4 fL Neutrophils (%) (Auto) 59.3 % Lymphocytes (%) (Auto) 32.3 % Monocytes (%) (Auto) 7.5 % Eosinophils (%) (Auto) 0.2 % Basophils (%) (Auto) 0.5 % Neutrophils # (Auto) 3.80 1.4-6.5 K/uL Lymphocytes # (Auto) 2.07 1.2-3.4 K/uL Monocytes # (Auto) 0.48 0.11-0.59 K/uL Eosinophils # (Auto) 0.01 0-0.5 K/uL Basophils # (Auto) 0.03 0-0.2 K/uL RDW Standard Deviation 51.8 36.4-46.3 fL RDW Coefficient of Variation 14.7 11.5-14.5 % Immature Granulocyte % (Auto) 0.2 % Immature Granulocyte # (Auto) 0.01 0.00-0.02 K/uL Prothrombin Time 10.0 9.0-12.0 SECONDS Prothromb Time International Ratio 0.9 0.9-1.1 Sodium Level 141 136-145 mmol/L Potassium Level 4.0 3.5-5.1 mmol/L Chloride Level 106 98-107 mmol/L Carbon Dioxide Level 20 21-32 mmol/L Anion Gap 15.0 3-11 mmol/L Blood Urea Nitrogen 13 7-18 mg/dl Creatinine 0.70 0.60-1.40 mg/dl Estimated GFR () 112.4 Estimated GFR (Non- 97.0 BUN/Creatinine Ratio 18.2 10-20 Random Glucose 73 70-99 mg/dl Calcium Level 8.4 8.5-10.1 mg/dl Magnesium Level 1.8 1.8-2.4 mg/dl Total Bilirubin 0.5 0.2-1 mg/dl Aspartate Amino Transf (AST/SGOT) 75 15-37 U/L Alanine Aminotransferase (ALT/SGPT) 64 12-78 U/L Alkaline Phosphatase 97 45-117 U/L Troponin I < 0.015 0-0.045 ng/ml Total Protein 6.8 6.4-8.2 gm/dl Albumin 3.6 3.4-5.0 gm/dl Globulin 3.2 2.5-4.0 gm/dl Albumin/Globulin Ratio 1.1 0.9-2 Lipase 150 73-393 U/L Ethyl Alcohol mg/dL 372.0 0-3 mg/dl EKG Sinus - RBBB no evidence of acute ischemia Impression Assessment and Plan 66 y/o M Hx ETOH abuse. Pt was brought to the ER intoxicated when his called EMS and stated that he felt he was attempting to harm himself. He was retained in the ER for several hours to achieve sobriety and undergo a mental health evaluation. Following evaluation the pt was slated for DC, however, he developed rigors, diaphoresis and chest pain. He responded to 2mg of Ativan. The pt is a very poor historian. He admits to central CP but could not recall if he was short of breath, nauseous or lightheaded. He states that he has had CP a few times in the past. 1) Alcohol intoxication and withdrawal - pt placed on telemetry as he is likely prone to DTs. Ativan will be provided PRN and he has been placed on a daily banana bag. The pt may need transfer to inpt rehab although at this point he does not seem interested. 2) CP - provided with ASA - serial enzymes ordered - placed on a B kaia as BP is slightly high and a degree of withdrawal is expected. 3) It is noted that the pt's glucose was slightly low on his initial BMP. A POC was then 63 so that this may have played a role in his symptoms. We have placed glucose in his fuids and treated him for mild hypoglycemia. 4) Depression - pt denies - may need reevaluation by mental health prior to DC Full code - SCDs only due to a fall risk Total time for this admit including review of labs, meds, imaging - discussion with pt and ER attending - 31 min Level of Care Telemetry Resuscitation Status FULL RESUSCITATION VTE Prophylaxis VTE Risk Assessment Done? Y/N: Yes Risk Level: Moderate Given or contraindicated: SCD's
[2016-12-21 03:15] VITALS: BP 169/99; PULSE 86; TEMP 36.4; O2SAT 96; BMI 25.6
[2016-12-21 03:21] VITALS: Ht 175.3 cm; Wt 78.5 kg
[2016-12-21] MEDS ORDERED: MULTI-VITAMIN INFUSION INJ 10 ML, THIAMINE HCL INJ 100 MG, FoLIC ACID INJ 1 MG in SODIU... IV SCH (04:30)
[2016-12-21 05:57] LABS: BUN/CREATININE RATIO 20.7 (10-20); CALCIUM 8.2 mg/dl (8.5-10.1); CREATININE 0.63 mg/dl (0.60-1.40); MAGNESIUM 1.6 mg/dl (1.8-2.4); POTASSIUM 4.1 mmol/L (3.5-5.1)
[2016-12-21 07:28] VITALS: BP 187/97; PULSE 87; TEMP 36.6; O2SAT 91
[2016-12-21] MEDS: D5W AND NSS 1,000 ML IV SCH ×2 (08:30→17:10)
[2016-12-21] MEDS: METOPROLOL TARTRATE 25 MG TAB PO SCH ×2 (09:01→20:59)
[2016-12-21] MEDS: ASPIRIN 81 MG ECTAB PO SCH (09:01)
[2016-12-21] MEDS: MAGNESIUM SULFATE 1GM / D5W 1 GM in PREMIXED IN D5W 100 ML IV SCH ×2 (09:02→10:25)
--- NOTE | 2016-12-21 10:22 | Hospitalist Progress Note ---
Hospitalist Progress Note Date of Service Dec 21, 2016. (Hemalatha Godwin ., SAUD) Subjective Pt evaluation today including: conversation w/ patient, physical exam, chart review, lab review, review of inpatient medication list Voiding: no voiding problems Mr. Kirkpatrick has been depressed for sometime. He would not directly answer the question as to whether he wants to hurt himself but did say "[employer] killed me" about being fired in 2014. He has been very unhappy since that time and has been drinking heavily since then but was not a drinker before that. He continues to have some chest pain that is due to reflux, no nausea or vomiting. He also has chills. Constitutional: + see HPI Respiratory: No shortness of breath Cardiovascular: + see HPI (Hemalatha Godwin, SAUD) Medications Medications (Trade) Dose Ordered Sig/Julio Cesar Route Start Time Stop Time Status Last Admin Dose Admin Sodium Chloride 1,000 ml @ 999 mls/hr Q1H1M STAT IV 12/20/16 18:00 12/20/16 19:00 DC 12/20/16 18:00 999 MLS/HR Thiamine HCl (Vitamin B-1 Tab) 100 mg NOW STAT PO 12/20/16 18:00 12/20/16 18:01 DC 12/20/16 20:47 100 MG Folic Acid (Folvite Tab) 1 mg NOW STAT PO 12/20/16 18:00 12/20/16 18:01 DC 12/20/16 20:46 1 MG Lorazepam (Ativan Inj) 2 mg NOW STAT IV 12/21/16 01:43 12/21/16 01:44 DC 12/21/16 02:04 2 MG Multivitamins 10 ml/Thiamine HCl 100 mg/Folic Acid 1 mg/Sodium Chloride 1,011.2 ml @ 250 mls/ hr Q24H IV 12/21/16 04:30 12/21/16 08:33 DC 12/21/16 04:56 250 MLS/HR Aspirin (Ecotrin Tab) 81 mg QAM PO 12/21/16 09:00 01/20/17 08:59 12/21/16 09:01 81 MG Metoprolol Tartrate (Lopressor Tab) 12.5 mg BID PO 12/21/16 09:00 01/20/17 08:59 12/21/16 09:01 12.5 MG Magnesium Sulfate 1 gm/Prmx 100 ml @ 100 mls/hr Q1H IV 12/21/16 09:00 12/21/16 10:59 12/21/16 09:02 100 MLS/HR (Hemalatha Godwin CRNP) Objective Vital Signs Date Time Temp Pulse Resp B/P (MAP) Pulse Ox O2 Delivery O2 Flow Rate FiO2 12/21/16 08:00 Room Air 12/21/16 07:28 36.6 87 19 187/97 (127) 91 Room Air 12/21/16 04:00 Room Air 12/21/16 03:15 36.4 86 18 169/99 96 Room Air 12/21/16 02:03 73 16 167/97 93 Room Air 12/21/16 00:27 75 12/20/16 23:06 84 18 161/100 93 Room Air 12/20/16 21:34 92 Room Air 12/20/16 21:28 86 12/20/16 20:49 81 18 110/86 92 Room Air 12/20/16 18:45 88 18 108/83 91 Room Air 12/20/16 16:47 92 20 95/57 91 Room Air 12/20/16 15:43 89 17 112/59 92 Room Air 12/20/16 14:34 89 137/96 97 Nasal Cannula 2.0 12/20/16 14:33 97 Nasal Cannula 2.0 12/20/16 14:16 36.8 95 24 182/168 98 Room Air 12/20/16 14:11 90 (Hemalatha Godwin CRNP) Physical Exam Notes: General: no distress Eyes: normal inspection, PERLL Respiratory: chest non tender, clear to auscultation, normal breath sounds, no respiratory distress, no accessory muscle use Cardiac: regular rate and rhythm, no rub or gallop, no murmur, no edema, no jvd GI/: active bowel sounds, no abd pain or tenderness, soft, non distended Extremities: normal range of motion, normal strength, non tender Neuro/Psych: alert and oriented x 3, normal mood and affect Skin: normal color, dry (Hemalatha Godwin CRNP) Laboratory Results Last 24 Hours Test 12/20/16 15:39 12/21/16 02:27 12/21/16 02:28 12/21/16 03:46 White Blood Count 6.40 K/uL Red Blood Count 4.76 M/uL Hemoglobin 16.0 g/dL Hematocrit 46.1 % Mean Corpuscular Volume 96.8 fL Mean Corpuscular Hemoglobin 33.6 pg Mean Corpuscular Hemoglobin Concent 34.7 g/dl Platelet Count 154 K/uL Mean Platelet Volume 8.8 fL Neutrophils (%) (Auto) 59.3 % Lymphocytes (%) (Auto) 32.3 % Monocytes (%) (Auto) 7.5 % Eosinophils (%) (Auto) 0.2 % Basophils (%) (Auto) 0.5 % Neutrophils # (Auto) 3.80 K/uL Lymphocytes # (Auto) 2.07 K/uL Monocytes # (Auto) 0.48 K/uL Eosinophils # (Auto) 0.01 K/uL Basophils # (Auto) 0.03 K/uL RDW Standard Deviation 51.8 fL RDW Coefficient of Variation 14.7 % Immature Granulocyte % (Auto) 0.2 % Immature Granulocyte # (Auto) 0.01 K/uL Prothrombin Time 10.0 SECONDS Prothromb Time International Ratio 0.9 Sodium Level 141 mmol/L Potassium Level 4.0 mmol/L Chloride Level 106 mmol/L Carbon Dioxide Level 20 mmol/L Anion Gap 15.0 mmol/L Blood Urea Nitrogen 13 mg/dl Creatinine 0.70 mg/dl Estimated GFR () 112.4 Estimated GFR (Non- 97.0 BUN/Creatinine Ratio 18.2 Random Glucose 73 mg/dl Calcium Level 8.4 mg/dl Magnesium Level 1.8 mg/dl Total Bilirubin 0.5 mg/dl Aspartate Amino Transf (AST/SGOT) 75 U/L Alanine Aminotransferase (ALT/SGPT) 64 U/L Alkaline Phosphatase 97 U/L Troponin I < 0.015 ng/ml Total Protein 6.8 gm/dl Albumin 3.6 gm/dl Globulin 3.2 gm/dl Albumin/Globulin Ratio 1.1 Lipase 150 U/L Ethyl Alcohol mg/dL 372.0 mg/dl Bedside Glucose 64 mg/dl 63 mg/dl 112 mg/dl Test 12/21/16 05:23 12/21/16 07:08 12/21/16 09:27 Sodium Level 137 mmol/L Potassium Level 4.1 mmol/L Chloride Level 104 mmol/L Carbon Dioxide Level 21 mmol/L Anion Gap 12.0 mmol/L Blood Urea Nitrogen 13 mg/dl Creatinine 0.63 mg/dl Est Creatinine Clear Calc Drug Dose 112.3 ml/min Estimated GFR () 117.4 Estimated GFR (Non- 101.3 BUN/Creatinine Ratio 20.7 Random Glucose 128 mg/dl Calcium Level 8.2 mg/dl Magnesium Level 1.6 mg/dl Troponin I < 0.015 ng/ml Bedside Glucose 78 mg/dl (Hemalatha Godwin CRNP) Assessment and Plan Mr. Kirkpatrick is a 66 y/o man with history of alcohol abuse. Pt was brought to the ER intoxicated when his called EMS and stated that he felt he was attempting to harm himself. He was retained in the ER for several hours to achieve sobriety and undergo a mental health evaluation. Following evaluation the pt was slated for DC, however, he developed rigors, diaphoresis and chest pain. He responded to 2mg of Ativan. Alcohol intoxication and withdrawal - pt placed on telemetry as he is likely prone to DTs. Neurontin, librium and a daily banana bag. The pt may need transfer to inpt rehab although at this point he does not seem interested. CP - provided with ASA - serial enzymes negative x2, initial changes on EKG in ED have resolved - placed on a B kaia as BP is slightly high and a degree of withdrawal is expected. Patient's description of his chest pain is consistent with reflux - start po protonix and carafate. Hypoglycemia - resolved, procalcitonin to assess for infection given that patient is also feeling chills. 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 Psych consulted. Hypomagnesemia - replaced Resuscitation status - Full code DVT prophylaxis - SCDs only due to a fall risk (Hemalatha Godwin CRNP) LOG CUT OFF SAWYER Physician Supervision Note: I interviewed and examined the patient. Discussed with Lucero Godwin LOG CUT OFF SAWYER and agree with findings and plan as documented in the note. Any exceptions or clarifications are listed here: None This patient came in for alcoholic withdrawal he was making some self-harm comments he was seen by psychiatry does not feel is at risk from self he is amended his statements and now is wishing to get help his attempt ill for some inpatient alcohol rehabilitation once he progresses through the medical part of withdrawal is His vital signs show some slight tachycardia and hypertension he is tremulous he is awake and alert and cooperative his heart is tachycardic but regular his lungs are clear Acute alcohol withdrawal we'll use scheduled Librium Neurontin oversight by our psychological services and case management Documented By: Fede Cm (Fede Cm M.D.)
[2016-12-21] MEDS ORDERED: CHLORDIAZEPOXIDE 25 MG CAP PO ONE (10:23)
[2016-12-21] MEDS ORDERED: PANTOprazole SOD 40 MG TAB PO ONE (10:30)
[2016-12-21 11:42] VITALS: BP 184/103; PULSE 72; TEMP 36.5; O2SAT 93
[2016-12-21] MEDS: SUCRALFATE 1 GM/10 ML UDC PO SCH ×3 (13:28→20:58)
[2016-12-21] MEDS: GABAPENTIN 300 MG CAP PO SCH ×2 (13:28→20:58)
--- NOTE | 2016-12-21 13:47 | Psychiatric Consultation ---
Consultation Date of Consultation Dec 21, 2016. Identifying Data 66-year-old [place] gentleman, admitted to the hospital with alcohol intoxication, withdrawal. Consult is requested to evaluate depression and suicidal statements. Information is gathered from the electronic medical record and the patient and considered to be reliable. Chief Complaint None stated. 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 He was released in 2014, reasons uncertain. He says everything has gone badly for him since. He says he is having trouble with his and with his daughter. His is apparently currently in [place] assisting their daughter who he says is on many medications and needs help with her children. The patient admits that his mood has been depressed. He cites financial problems that have made it difficult for him to manage the home. He says they have a pool that is currently broken. He has relied heavily on his [employer] [employer] to assist him and he describes spending a great deal of time with yazdanism members and activities. He indicates that he has never received any treatment of any kind for depression and says that he has always been a very strong man. He talks about having grown up in [place]. His mother in childbirth when he was 3. His father left he and his older brother. 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 He admits that he has been drinking. He was drinking on Saturday and says that he will drink a half gallon of vodka every 2 days. Blood alcohol was over 300 in the emergency department. Today he says he would like to stop drinking and will "give it to God" and use the support of his yazdanism, however does not want any other formalized treatment including inpatient rehabilitation. When asked about suicidal ideation he says "I don't think so" and denies that he is having thoughts of ending his life today. He apparently was under the influence of alcohol when he made suicidal statements to the office of aging person who went to see him in his home. He reports that his sleep and appetite are good. He admits to anxiety specifically regarding family and financial issues. He denies hallucinations. Past Psychiatric History Current OP Treatment: no current treatment Prior OP Treatment: no prior treatment Prior Psych Hospitalizations: none Suicide Attempts: No Past Medication Trials None Past Medical/Surgical History (1) Alcohol dependence Allergies Allergies: Coded Allergies: No Known Allergies (Unverified , 12/05/16) Home Medications Unable to Obtain Active Prescriptions or Reported Meds Family History No pertinent family history History of Suicide: No History of Substance Abuse: No Psychiatric History: No Alcohol Use Alcohol Use In Past 12 Months: Yes Drinks a half gallon of vodka every 2 days Smoking Use Smoking Status: Current Every Day Smoker Personal History Education: graduated college Work History: Let go from the [employer] in 2014 Relationship History: Children: 4 Spiritual Affiliation: Church Examination Physical Examination As per Hemalatha VILLAVICENCIO Vital Signs Vital Signs Past 12 Hours Date Time Temp Pulse Resp B/P (MAP) Pulse Ox O2 Delivery O2 Flow Rate FiO2 12/21/16 11:42 36.5 72 20 184/103 (130) 93 Room Air 12/21/16 08:00 Room Air 12/21/16 07:28 36.6 87 19 187/97 (127) 91 Room Air 12/21/16 04:00 Room Air 12/21/16 03:15 36.4 86 18 169/99 96 Room Air 12/21/16 02:03 73 16 167/97 93 Room Air Laboratory Results Last 24 Hours Test 12/20/16 15:39 12/21/16 02:28 12/21/16 03:46 12/21/16 05:23 White Blood Count 6.40 K/uL Red Blood Count 4.76 M/uL Hemoglobin 16.0 g/dL Hematocrit 46.1 % Mean Corpuscular Volume 96.8 fL Mean Corpuscular Hemoglobin 33.6 pg Mean Corpuscular Hemoglobin Concent 34.7 g/dl Platelet Count 154 K/uL Mean Platelet Volume 8.8 fL Neutrophils (%) (Auto) 59.3 % Lymphocytes (%) (Auto) 32.3 % Monocytes (%) (Auto) 7.5 % Eosinophils (%) (Auto) 0.2 % Basophils (%) (Auto) 0.5 % Neutrophils # (Auto) 3.80 K/uL Lymphocytes # (Auto) 2.07 K/uL Monocytes # (Auto) 0.48 K/uL Eosinophils # (Auto) 0.01 K/uL Basophils # (Auto) 0.03 K/uL RDW Standard Deviation 51.8 fL RDW Coefficient of Variation 14.7 % Immature Granulocyte % (Auto) 0.2 % Immature Granulocyte # (Auto) 0.01 K/uL Prothrombin Time 10.0 SECONDS Prothromb Time International Ratio 0.9 Sodium Level 141 mmol/L 137 mmol/L Potassium Level 4.0 mmol/L 4.1 mmol/L Chloride Level 106 mmol/L 104 mmol/L Carbon Dioxide Level 20 mmol/L 21 mmol/L Anion Gap 15.0 mmol/L 12.0 mmol/L Blood Urea Nitrogen 13 mg/dl 13 mg/dl Creatinine 0.70 mg/dl 0.63 mg/dl Estimated GFR () 112.4 117.4 Estimated GFR (Non- 97.0 101.3 BUN/Creatinine Ratio 18.2 20.7 Random Glucose 73 mg/dl 128 mg/dl Calcium Level 8.4 mg/dl 8.2 mg/dl Magnesium Level 1.8 mg/dl 1.6 mg/dl Total Bilirubin 0.5 mg/dl Aspartate Amino Transf (AST/SGOT) 75 U/L Alanine Aminotransferase (ALT/SGPT) 64 U/L Alkaline Phosphatase 97 U/L Troponin I < 0.015 ng/ml < 0.015 ng/ml Total Protein 6.8 gm/dl Albumin 3.6 gm/dl Globulin 3.2 gm/dl Albumin/Globulin Ratio 1.1 Lipase 150 U/L Ethyl Alcohol mg/dL 372.0 mg/dl Bedside Glucose 63 mg/dl 112 mg/dl Est Creatinine Clear Calc Drug Dose 112.3 ml/min Test 12/21/16 07:08 12/21/16 09:27 12/21/16 10:45 12/21/16 11:27 Bedside Glucose 78 mg/dl 157 mg/dl Procalcitonin 0.05 ng/ml Troponin I < 0.015 ng/ml Mental Examination During interview pt is: alert and oriented, cooperative Appearance: disheveled (with long unkempt matamoros and mustache) Eye contact is: good Motor behavior is: no abnormal motor movements Speech: normal in rate, rhythm & volume (heavily accented) Affect: flat Mood is: depressed Thought process: goal directed Thought content: reality based without delusions Suicidal thought are: denied Homicidal thoughts are: denied Hallucinations: denies auditory, denies visual Intelligence estimated to be: average Insight: poor Judgement: poor Impression / Recommendations Impression 66-year-old [place] gentleman admitted to the hospital with alcohol intoxication and withdrawal. He admits to drinking a half gallon of vodka every 2 days. We discussed possible treatment options for his alcohol dependence but he is not interested in anything other than relying on his yazdanism and giving it to God. We also discussed his depression which has been worsening since he was let go from the [employer] in 2014. He has no interest in psychiatric medications or therapy. He is currently denying that he is suicidal and in review of the chart, his previous suicidal statement was likely made under the influence of alcohol. I have tried to talk with him in practical terms, about how he will avoid using alcohol and how he will improve his mood, but is somewhat rigid in his believes and what he will except. At this point he is not allowing me any room to make an intervention and does not meet criteria for any kind of involuntary treatment. I have told him that if he changes his mind about any of these things that we can help him while he is here in the hospital and should have me reconsult. He is otherwise psychiatrically stable for discharge Risk Factors Assessment Male: Yes : Yes /single/: No Higher / Fall in social status: Yes Health problems: No Mental Health Diagnoses: No Substance use disorders: Yes Previous psychiatric stay: No Protective Factors Assessment Spiritism beliefs: Yes : Yes Responsible for young children: No Employed: No Recommendations (1) Major depressive disorder, single episode, moderate 12/21 - The patient admits to being depressed but declines the offer of medications or any kind of outpatient treatment. - He is denying suicidality today and previously identified suicidal statements were made while he was under the influence of alcohol. - I have told him that I will gladly return if he changes his mind about any kind of treatment (2) Alcohol dependence 12/21 - Have recommended abstinence which he agrees he wants to do but refuses any kind of formal substance use treatment. He will use the support of his yazdanism - He is at high risk of a withdrawal syndrome as he cannot tell me when he was last without alcohol and so would continue to use the NACHO S protocol and continue to encourage inpatient rehabilitation Has been reviewed with Dr. Sydney weir
[2016-12-21] MEDS: HydrALAZINE HCL 20 MG/ML VIAL IV. PRN (14:03)
[2016-12-21 15:13] VITALS: BP 174/87; PULSE 80; TEMP 36.6; O2SAT 96
[2016-12-21 19:53] VITALS: BP 163/95; PULSE 76; TEMP 36.6; O2SAT 94
[2016-12-21] MEDS: CHLORDIAZEPOXIDE 25 MG CAP PO SCH (20:58)
[2016-12-21 23:35] VITALS: BP 155/97; PULSE 66; TEMP 36.4; O2SAT 95
[2016-12-22] VITALS (7 sets, daily range): BP systolic 146–191; BP diastolic 88–110; PULSE 59–69; TEMP 36.3–37.1; O2SAT 94–97
[2016-12-22] MEDS: SUCRALFATE 1 GM/10 ML UDC PO SCH ×4 (07:44→21:37)
[2016-12-22] MEDS: PANTOprazole SOD 40 MG TAB PO SCH (07:44)
[2016-12-22] MEDS: CHLORDIAZEPOXIDE 25 MG CAP PO SCH ×2 (07:44→21:37)
[2016-12-22] MEDS: GABAPENTIN 300 MG CAP PO SCH ×3 (07:45→21:37)
[2016-12-22] MEDS: ASPIRIN 81 MG ECTAB PO SCH (07:45)
[2016-12-22] MEDS: HydrALAZINE HCL 20 MG/ML VIAL IV. PRN (07:47)
[2016-12-22] MEDS: MULTI-VITAMIN INFUSION INJ 10 ML, THIAMINE HCL INJ 100 MG, FoLIC ACID INJ 1 MG in SODIU... IV SCH (09:23)
[2016-12-22 09:28] LABS: CREATININE 0.84 mg/dl (0.60-1.40); MAGNESIUM 1.7 mg/dl (1.8-2.4); POTASSIUM 3.5 mmol/L (3.5-5.1)
--- NOTE | 2016-12-22 09:57 | DIAGNOSTIC IMAGING REPORT ---
CHEST 2 VIEWS ROUTINE CLINICAL HISTORY: 66 years-old Male presenting with chest pain, sob. TECHNIQUE: PA and lateral views of the chest were obtained. COMPARISON: 12/20/2016. FINDINGS: Cardiomediastinal silhouette normal. Persistent linear opacity at the left lung base with mild elevation of the left hemidiaphragm, unchanged. No new focal infiltrate. No pleural effusion or pneumothorax. Osseous structures normal. Upper abdomen normal. IMPRESSION: 1. Minimal left basilar atelectasis or scarring, unchanged. No new focal infiltrate. Electronically signed by: Patricio Zuñiga M.D. 12/22/2016 9:56 AM Dictated Date/Time: 12/22/2016 9:54 AM
[2016-12-22] MEDS: METOPROLOL TARTRATE 25 MG TAB PO SCH ×3 (10:06→21:37)
[2016-12-22] MEDS: MAGNESIUM SULFATE 1GM / D5W 1 GM in PREMIXED IN D5W 100 ML IV SCH ×2 (11:18→12:59)
--- NOTE | 2016-12-22 11:54 | Hospitalist Progress Note ---
Hospitalist Progress Note Date of Service Dec 22, 2016. (Hemalatha Godwin CRNP) Subjective Pt evaluation today including: conversation w/ patient Mr. Kirkpatrick is much more coherent today than yesterday. He is feeling well except that he is not able to take full breaths however he denies cp or cough. He does not feel unhappy today and has never felt suicidal or that he wishes to harm himself. He is done drinking as of this admission and doesn't feel he needs rehab. He would prefer to go through his pentecostalism for alcohol cessation. He has no tremors. Constitutional: No fever, No chills Respiratory: + problem reported (feels that he cannot take full breaths), No cough, No sputum, No wheezing Cardiovascular: No chest pain Abdomen: No pain, No nausea, No vomiting, No diarrhea Male : No dysuria Psychiatric: No depression symptoms (Hemalatha Godwin CRNP) Medications Medications (Trade) Dose Ordered Sig/Julio Cesar Route Start Time Stop Time Status Last Admin Dose Admin Multivitamins 10 ml/Thiamine HCl 100 mg/Folic Acid 1 mg/Sodium Chloride 1,011.2 ml @ 125 mls/ hr Q24H IV 12/22/16 09:00 01/21/17 08:59 12/22/16 09:23 125 MLS/HR Pantoprazole Sodium (Protonix Tab) 40 mg QAM PO 12/22/16 09:00 01/21/17 08:59 12/22/16 07:44 40 MG Chlordiazepoxide (Librium Cap) 25 mg BID PO 12/21/16 21:00 01/20/17 20:59 12/22/16 07:44 25 MG Gabapentin (Neurontin Cap) 300 mg TID PO 12/21/16 14:00 01/20/17 13:59 12/22/16 07:45 300 MG Sucralfate (Carafate Susp) 1 gm QID PO 12/21/16 13:00 01/20/17 12:59 12/22/16 07:44 1 GM Metoprolol Tartrate (Lopressor Tab) 25 mg TID PO 12/22/16 09:00 01/20/17 08:59 12/22/16 10:06 25 MG Magnesium Sulfate 1 gm/Prmx 100 ml @ 100 mls/hr Q1H IV 12/22/16 11:00 12/22/16 12:59 12/22/16 11:18 100 MLS/HR (Hemalatha Godwin CRNP) Objective Vital Signs Date Time Temp Pulse Resp B/P (MAP) Pulse Ox O2 Delivery O2 Flow Rate FiO2 12/22/16 11:15 Room Air 12/22/16 08:23 146/89 (108) 12/22/16 07:30 Room Air 12/22/16 07:02 37.0 68 20 191/110 (137) 95 Room Air 12/22/16 04:00 Room Air 12/22/16 03:33 36.3 69 20 178/94 (122) 97 Room Air 12/21/16 23:59 Room Air 12/21/16 23:35 36.4 66 20 155/97 (116) 95 Room Air 12/21/16 20:00 Room Air 12/21/16 19:53 36.6 76 21 163/95 (117) 94 Room Air 12/21/16 16:00 Room Air 12/21/16 15:13 36.6 80 20 174/87 (116) 96 Room Air 12/21/16 12:00 Room Air (Hemalatha Godwin CRNP) Physical Exam Notes: General: no distress Eyes: normal inspection, PERLL Respiratory: chest non tender, clear to auscultation, normal breath sounds, no respiratory distress, no accessory muscle use Cardiac: regular rate and rhythm, no rub or gallop, no murmur, no edema, no jvd GI/: active bowel sounds, no abd pain or tenderness, soft, non distended Extremities: normal range of motion, normal strength, non tender Neuro/Psych: alert and oriented x 3, normal mood and affect Skin: normal color, dry (Hemalatha Godwin CRNP) Laboratory Results Last 24 Hours Test 12/21/16 16:04 12/21/16 20:04 12/22/16 08:40 Bedside Glucose 145 mg/dl 137 mg/dl Sodium Level 139 mmol/L Potassium Level 3.5 mmol/L Chloride Level 107 mmol/L Carbon Dioxide Level 21 mmol/L Anion Gap 11.0 mmol/L Blood Urea Nitrogen 8 mg/dl Creatinine 0.84 mg/dl Est Creatinine Clear Calc Drug Dose 84.2 ml/min Estimated GFR () 104.3 Estimated GFR (Non- 90.0 BUN/Creatinine Ratio 10.0 Random Glucose 156 mg/dl Calcium Level 9.0 mg/dl Magnesium Level 1.7 mg/dl (Hemalatha Godwin ., SAUD) Assessment and Plan Mr. Kirkpatrick is a 66 y/o man with history of alcohol abuse. Pt was brought to the ER intoxicated when his called EMS and stated that he felt he was attempting to harm himself. He was retained in the ER for several hours to achieve sobriety and undergo a mental health evaluation. Following evaluation the pt was slated for DC, however, he developed rigors, diaphoresis and chest pain. He responded to 2mg of Ativan. Alcohol intoxication and withdrawal - pt placed on telemetry as he is likely prone to DTs. Neurontin, librium and a daily banana bag. Pt is not interested in inpatient rehab. CP - provided with ASA - serial enzymes negative x2, initial changes on EKG in ED have resolved - placed on a B kaia as BP is slightly high and a degree of withdrawal is expected. Patient's description of his chest pain is consistent with reflux - start po protonix and carafate. 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 He does not have intention to harm himself and denies ever having any. Psych consulted. Hypomagnesemia - replaced Resuscitation status - Full code DVT prophylaxis - SCDs only due to a fall risk (Hemalatha Godwin ., SAUD) Attending Attestation: Pt seen/examined, chart reviewed, care plan d/w SAUD Godwin. I agree w/ the nobles components of her documentation. Pt feels "much better" today. His only complaint was that of mild dyspnea and mild pleurisy - both improved by the time of my assessment. Has been smoking "long time" 1 ppd. tele stable. VSS no fever gen - nad mouth - MMM heart - RRR lungs - mild end-exp wheeze abd - soft, NT, no HSM ext - no edema neuro - no tremors or signs of etoh withdrawal labs - mag 1.7 bmp wnl cxr wnl a/p: 1. etoh intoxication - resolved 2. probable mild etoh withdrawal - stable, cont gabapentin, ativan prn; thiamine/folic acid/MVI 3. dyspnea, mild pleuritic type pain - suspect due to wheezing; underlying COPD ? add combivent QID progressing re-eval AM Ryan Barrow MD (Ryan Barrow MD)
[2016-12-22] MEDS: IPRATROPIUM BROMIDE/ALBUTEROL respimat INH INH SCH ×2 (17:45→21:37)
[2016-12-23 03:24] VITALS: BP 136/84; PULSE 58; TEMP 36.6; O2SAT 99
[2016-12-23 07:31] VITALS: BP_SYST 176; BP_SYST 177; BP_DIAS 110; BP_DIAS 97; PULSE 64; TEMP 36.7; O2SAT 98
[2016-12-23] MEDS: PANTOprazole SOD 40 MG TAB PO SCH (08:05)
[2016-12-23] MEDS: CHLORDIAZEPOXIDE 25 MG CAP PO SCH ×2 (08:06→20:46)
[2016-12-23] MEDS: GABAPENTIN 300 MG CAP PO SCH ×3 (08:06→20:46)
[2016-12-23] MEDS: METOPROLOL TARTRATE 25 MG TAB PO SCH ×3 (08:06→20:48)
[2016-12-23] MEDS: SUCRALFATE 1 GM/10 ML UDC PO SCH ×4 (08:06→20:46)
[2016-12-23] MEDS: ASPIRIN 81 MG ECTAB PO SCH (08:06)
[2016-12-23] MEDS: IPRATROPIUM BROMIDE/ALBUTEROL respimat INH INH SCH ×4 (08:08→20:46)
[2016-12-23] MEDS: MULTI-VITAMIN INFUSION INJ 10 ML, THIAMINE HCL INJ 100 MG, FoLIC ACID INJ 1 MG in SODIU... IV SCH (08:08)
[2016-12-23] MEDS ORDERED: MAGNESIUM SULFATE 1GM / D5W 1 GM in PREMIXED IN D5W 100 ML IV ONE (09:30)
[2016-12-23 11:51] VITALS: BP 157/99; PULSE 65; TEMP 37.1; O2SAT 96
[2016-12-23 13:36] VITALS: PULSE 56
--- NOTE | 2016-12-23 13:45 | Hospitalist Progress Note ---
Hospitalist Progress Note Date of Service Dec 23, 2016. (Alena Arthur ., PA-C) Subjective Pt evaluation today including: conversation w/ patient, physical exam, lab review, review of studies, review of inpatient medication list Voiding: no voiding problems Patient feeling well. Eating and drinking OK. +acid reflux after eating. Protonix and Carafate ordered. Denies CP, palpitation, or SOB. Denies any s/s of alcohol withdrawal. States he will follow-up with [facility] for continued help at discharge. Patient denies any fever, chills, sweats, lightheadedness, dizziness, vision changes, CP, palpitations, edema, SOB, wheezing, cough, abdominal pain, nausea, vomiting, diarrhea, urinary symptoms, melena, numbness/tingling, weakness, muscle/joint pain, anxiety/depression, active bleeding, or new skin discoloration/changes. (Alena Arthur ., PA-C) Medications Current Inpatient Medications Medications (Trade) Dose Ordered Sig/Julio Cesar Route Start Time Stop Time Status Last Admin Dose Admin Acetaminophen (Tylenol Tab) 650 mg Q4H PRN PO 12/21/16 02:15 01/20/17 02:14 12/22/16 17:10 650 MG Al Hydrox/Mg Hydrox/Simethicone (Maalox Max Susp) 15 ml Q4H PRN PO 12/21/16 02:15 01/20/17 02:14 Magnesium Hydroxide (Milk Of Magnesia Susp) 30 ml Q12H PRN PO 12/21/16 02:15 01/20/17 02:14 Ondansetron HCl (Zofran Inj) 4 mg Q6H PRN IV 12/21/16 02:15 01/20/17 02:14 Nitroglycerin (Nitrostat Tab) 0.4 mg UD PRN SL 12/21/16 02:15 01/20/17 02:14 Morphine Sulfate (MoRPHine SULFATE INJ) 2 mg Q30M PRN IV 12/21/16 02:15 01/04/17 02:14 Aspirin (Ecotrin Tab) 81 mg QAM PO 12/21/16 09:00 01/20/17 08:59 12/23/16 08:06 81 MG Polyethylene (Miralax Powder Packet) 17 gm DAILY PRN PO 12/21/16 02:15 01/20/17 02:14 Multivitamins 10 ml/Thiamine HCl 100 mg/Folic Acid 1 mg/Sodium Chloride 1,011.2 ml @ 125 mls/ hr Q24H IV 12/22/16 09:00 01/21/17 08:59 12/23/16 08:08 125 MLS/HR Hydralazine HCl (HydrALAZINE INJ) 10 mg Q4H PRN IV. 12/21/16 08:30 01/20/17 08:29 12/22/16 07:47 10 MG Pantoprazole Sodium (Protonix Tab) 40 mg QAM PO 12/22/16 09:00 01/21/17 08:59 12/23/16 08:05 40 MG Chlordiazepoxide (Librium Cap) 25 mg BID PO 12/21/16 21:00 01/20/17 20:59 12/23/16 08:06 25 MG Gabapentin (Neurontin Cap) 300 mg TID PO 12/21/16 14:00 01/20/17 13:59 12/23/16 08:06 300 MG Sucralfate (Carafate Susp) 1 gm QID PO 12/21/16 13:00 01/20/17 12:59 12/23/16 12:20 1 GM Lorazepam (Ativan Inj) 1 mg Q4H PRN IV 12/21/16 10:30 01/20/17 10:29 Metoprolol Tartrate (Lopressor Tab) 25 mg TID PO 12/22/16 09:00 01/20/17 08:59 12/23/16 08:06 25 MG Albuterol/ Ipratropium (Combivent Respimat Inh) 1 puffs QID INH 12/22/16 17:45 01/21/17 17:44 12/23/16 12:21 1 PUFFS (Alena Arthur, YONG) Objective Vital Signs Date Time Temp Pulse Resp B/P (MAP) Pulse Ox O2 Delivery O2 Flow Rate FiO2 12/23/16 11:51 37.1 65 20 157/99 (118) 96 Room Air 12/23/16 11:30 Room Air 12/23/16 07:31 36.7 64 20 176/97 (123) 98 Room Air 177/110 (132) 12/23/16 07:30 Room Air 12/23/16 04:17 Room Air 12/23/16 03:24 36.6 58 18 136/84 (101) 99 Room Air 12/23/16 00:02 Room Air 12/22/16 23:55 37.0 69 16 146/88 (107) 95 Room Air 12/22/16 20:00 Room Air 12/22/16 19:28 36.6 67 20 154/89 (110) 94 Room Air 12/22/16 16:00 Room Air 12/22/16 15:27 37.1 59 20 146/92 (110) 95 Room Air (Alena Arthur, PA-C) Physical Exam General Appearance: no apparent distress Eyes: PERRL ENT: hearing grossly normal Neck: supple Respiratory/Chest: lungs clear, no respiratory distress, no accessory muscle use, + decreased breath sounds Cardiovascular: regular rate, rhythm Abdomen: normal bowel sounds, non tender, soft Extremities: no pedal edema, no calf tenderness Neurologic/Psychiatric: alert, normal mood/affect, oriented x 3, + pertinent finding (No tremors ) Skin: normal color, warm/dry, no rash (Alena Arthur, AURELIA-C) Assessment and Plan Mr. Kirkpatrick is a 66 y/o man with history of alcohol abuse. Pt was brought to the ER intoxicated when his called EMS and stated that he felt he was attempting to harm himself. He was retained in the ER for several hours to achieve sobriety and undergo a mental health evaluation. Following evaluation the pt was slated for DC, however, he developed rigors, diaphoresis and chest pain. He responded to 2mg of Ativan. Alcohol intoxication- RESOLVED and withdrawal- STABLE: - Admitted to tele for cardiac monitoring- no acute events - Alcohol withdrawal protocol - IV banana bag daily, Gabapentin 300 mg TID, Librium 25 mg BID - Psychiatry consulted, appreciate recommendations- patient wishes to pursue outpatient help through his [facility] on his own CP- RESOLVED: - No acute events on tele - ASA 81 mg daily - Trended cardiac enzymes- negative HTN: - Metoprolol 25 mg TID due to elevated BP- continue to titrate PRN - Hydralazine IV PRN SOB- RESOLVED: - CXR w/ no acute processes - Combivent QID Hypomagnesemia: Replaced w/ IV Mag supplement. Follow mag level and replace PRN Hypoglycemia- RESOLVED Depression: Psychiatry consulted- follow outpatient w/ PCP GI prophylaxis: Protonix + Carafate DVT prophylaxis: TEDs/SCDs, ambulation Code Status: LEVEL I, FULL Dispo: Discharge to home once medically stable- hopefully tomorrow (Alena Arthur ., PA-C) Attending Attestation: Pt seen/examined, chart reviewed, care plan d/w AURELIA Arthur. I agree w/ the nobles components of her documentation. Pt w/o complaints. Combivent has helped breathing. Denies anxiety, stress, tremors. Wants to go home. tele stable. VSS except BPs high gen - nad, a/o x 3, no signs of etoh withdrawal heart - RRR lungs - CTA b/l abd - soft, no HSM ext - no edema A/P: 1. etoh abuse - declines assistance to stop. Wishes to do such on his own. 2. tobacco dependence 3. at risk of etoh withdrawal - on librium & gabapentin - no signs of withdrawal at this time, although elevated BP may suggest ongoing mild withdrawal 4. ?HTN - add nifedipine 30mg daily to the metoprolol; follow d/c fluids thiamine/folic acid/MVI supplements home tomorrow? Prabhjot BARROW MD (Ryan Barrow MD)
[2016-12-23 15:20] VITALS: BP 160/100; PULSE 61; TEMP 36.8; O2SAT 96
[2016-12-23] MEDS ORDERED: NIFEdipine 30 MG CR TAB PO STA (18:25)
[2016-12-23 19:25] VITALS: BP 158/86; PULSE 56; TEMP 36.6; O2SAT 95
[2016-12-23] MEDS: THIAMINE HCL 100 MG TAB PO SCH (20:46)
[2016-12-24 00:15] VITALS: BP 152/92; PULSE 58; TEMP 36.2; O2SAT 94
[2016-12-24 04:00] VITALS: BP 145/62; PULSE 64; TEMP 36.5; O2SAT 92
[2016-12-24 07:46] VITALS: BP 145/90; PULSE 61; TEMP 36.6; O2SAT 93
[2016-12-24] MEDS: THIAMINE HCL 100 MG TAB PO SCH (07:52)
[2016-12-24] MEDS: GABAPENTIN 300 MG CAP PO SCH (07:53)
[2016-12-24] MEDS: SUCRALFATE 1 GM/10 ML UDC PO SCH (07:53)
[2016-12-24] MEDS: ASPIRIN 81 MG ECTAB PO SCH (07:53)
[2016-12-24] MEDS: METOPROLOL TARTRATE 25 MG TAB PO SCH (07:53)
[2016-12-24] MEDS: IPRATROPIUM BROMIDE/ALBUTEROL respimat INH INH SCH (07:54)
[2016-12-24] MEDS: PANTOprazole SOD 40 MG TAB PO SCH (07:54)
[2016-12-24] MEDS: CHLORDIAZEPOXIDE 25 MG CAP PO SCH (07:57)
[2016-12-24] MEDS ORDERED: CEROVITE ADV FORMULA TAB PO SCH (09:00)
[2016-12-24] MEDS ORDERED: NIFEdipine 30 MG CR TAB PO SCH (09:00)
[2016-12-24] MEDS ORDERED: THM100 PO (09:38)
[2016-12-24] MEDS ORDERED: CRFUDL PO (09:38)
[2016-12-24] MEDS ORDERED: ASPEC81 PO (09:38)
[2016-12-24] MEDS ORDERED: PRT40 PO (09:38)
[2016-12-24] MEDS ORDERED: NRN300 PO (09:38)
[2016-12-24] MEDS ORDERED: CNT PO (09:38)
[2016-12-24] MEDS ORDERED: LPR25 PO (09:38)
[2016-12-24] MEDS ORDERED: FLV1 PO (09:38)
[2016-12-24] MEDS ORDERED: LBR25 PO (09:38)
--- NOTE | 2016-12-24 09:42 | Discharge Instructions ---
Discharge Instructions Date of Service Dec 24, 2016. Admission Reason for Admission: Alcohol Abuse, Chest Pain Discharge Discharge Diagnosis / Problem: Alcohol intoxication, chest pain Discharge Goals Goal(s): Decrease discomfort, Improve function, Increase independence, Improve disease control, Improve nutritional status Activity Recommendations Activity Limitations: resume your previous activity Lifting Limitations: no more than 5 pounds Exercise/Sports Limitations: none May Resume Sexual Activity: when tolerated Shower/Bathe: no limitations Driving or Machine Use: resume 1 day after discharge . Instructions / Follow-Up Instructions / Follow-Up You were admitted to [facility] with alcohol intoxication and chest pain, diagnosed with alcohol intoxication. During your stay here you were treated with alcohol withdrawal medications, supportive care, and seen by psychiatry. You decided to seek outpatient alcohol cessation through your baptism. Please discuss with your district or district office director on a routine basis to have the best outcome for alcohol cessation. You were started on several medications while here at the hospital: Metoprolol tartrate 25 mg, three times daily for blood pressure - Follow up with family doctor within 2 weeks to assess blood pressure control Librium 25 mg once twice daily x 4 days, then once in the morning x 3 more days in morning to prevent alcohol withdrawal. DO NOT DRINK ALCOHOL Pantoprazole 40 mg daily - for indigestion Gabapentin 300 mg three times daily Aspirin 81 mg daily Continue taking multivitamin and thiamine daily as directed. Appointments: Follow up with your Primary Care Provider within 1-2 weeks. Current Hospital Diet Patient's current hospital diet: Regular Diet, AHA Diet (Heart Healthy) Discharge Diet Recommended Diet: AHA Diet (Heart Healthy) Pending Studies Studies pending at discharge: no Medical Emergencies . Who to Call and When: Medical Emergencies: If at any time you feel your situation is an emergency, please call 911 immediately. . Non-Emergent Contact Non-Emergency issues call your: Primary Care Provider Call Non-Emergent contact if: you have a fever, temperature is above 100.5, your pain is not controlled, you have any medication questions other concerns with your health. Call 911 or go directly to the Emergency Department if you experience any of the following: Chest pain, chest tightness, shortness of breath, abdominal pain , lightheadedness, dizziness, gastrointestinal bleeding, or have any other concerns regarding your health. . . "Provider Documentation" section prepared by Esha Murphy. Attending Attestation: Pt seen/examined and discharge care plan d/w AURELIA Murphy. I agree w/ her discharge instructions as outlined. Ryan Barrow MD . VTE Core Measure Inpt VTE Proph given/why not?: SCD's
[2016-12-24 10:56] VITALS: BP 144/90; PULSE 83; TEMP 36.6; O2SAT 94
[2016-12-24 11:28] VITALS: BP 144/90; PULSE 83; TEMP 36.6; O2SAT 94
--- NOTE | 2016-12-24 16:30 | Discharge Summary ---
Discharge Summary Date of Service Dec 24, 2016. (Izabella Murphy PA-C) Discharge Summary Admission Date: Dec 21, 2016 at 02:18 Discharge Date: Dec 24, 2016 Discharge Disposition: Home Principal Diagnosis: Alcohol intoxication, chest pain Problems/Secondary Diagnoses: Hypertension Chest pain Depression Gerd Hx of tobacco use Procedures: HEAD WITHOUT CONTRAST (CT) CLINICAL HISTORY: 66 years-old Male presenting with etoh, ams. TECHNIQUE: Multidetector CT imaging of the head was performed without the use of intravenous contrast. IV contrast: None. A dose lowering technique was used consistent with the principles of ALARA (as low as reasonably achievable). COMPARISON: 12/05/2016. CT DOSE (mGy.cm): The estimated cumulative dose is 2204.05 mGycm. FINDINGS: Senior Recruitment Consultant topogram: Unremarkable. Ventricles and sulci normal in size. Brain parenchyma normal in appearance with preserved warren-white differentiation. No mass effect or midline shift. No hemorrhage or acute territorial infarct. No extra-axial fluid collection. Polypoid mucosal thickening in the maxillary sinuses. Calvarium intact. IMPRESSION: 1. No acute intracranial pathology. Electronically signed by: Patricio Zuñiga M.D. 12/20/2016 3:19 PM Dictated Date/Time: 12/20/2016 3:16 PM The status of this report is Signed. CHEST ONE VIEW PORTABLE CLINICAL HISTORY: etoh dyspnea COMPARISON STUDY: 11/03/2016 FINDINGS: Minimal atelectatic change left base and left midlung. Lungs clear. No focal infiltrates. No evidence for cardiac enlargement. IMPRESSION: Minimal left basilar atelectasis. Otherwise negative study. The above report was generated using voice recognition software. It may contain grammatical, syntax or spelling errors. Electronically signed by: Inocencio Live M.D. 12/20/2016 2:28 PM Dictated Date/Time: 12/20/2016 2:27 PM The status of this report is Signed. CERVICAL SPINE W/O CT DOSE: 650.38 mGycm HISTORY: Altered mental status ethos TECHNIQUE: Multiaxial CT images of the cervical spine were performed and reformatted in the sagittal and coronal plane without the use of contrast. A dose lowering technique was utilized adhering to the principles of ALARA. COMPARISON: None. FINDINGS: Considerable degenerative disc changes throughout. No evidence for an acute compression deformity. No evidence for subluxation. Osteopenia. IMPRESSION: Considerable degenerative change. No acute bony abnormality The above report was generated using voice recognition software. It may contain grammatical, syntax or spelling errors. Electronically signed by: Inocencio Live M.D. 12/20/2016 3:19 PM Dictated Date/Time: 12/20/2016 3:17 PM The status of this report is Signed. CHEST 2 VIEWS ROUTINE CLINICAL HISTORY: 66 years-old Male presenting with chest pain, sob. TECHNIQUE: PA and lateral views of the chest were obtained. COMPARISON: 12/20/2016. FINDINGS: Cardiomediastinal silhouette normal. Persistent linear opacity at the left lung base with mild elevation of the left hemidiaphragm, unchanged. No new focal infiltrate. No pleural effusion or pneumothorax. Osseous structures normal. Upper abdomen normal. IMPRESSION: 1. Minimal left basilar atelectasis or scarring, unchanged. No new focal infiltrate. Electronically signed by: Patricio Zuñiga M.D. 12/22/2016 9:56 AM Dictated Date/Time: 12/22/2016 9:54 AM The status of this report is Signed. Consultations: Psychiatry (Izabella Murphy PAPhilC) Problems/Secondary Diagnoses: question of underlying COPD hypomagnesemia - resolved alcohol-induced hypoglycemia - resolved (Ryan Barrow MD) Medication Reconciliation New Medications: Aspirin (Aspirin EC Low Dose) 81 Mg Ectab 81 MG PO QAM for 30 Days, #30 TAB Chlordiazepoxide (Chlordiazepoxide HCl) 25 Mg Cap 25 MG PO UD for 7 Days, #11 CAP Take 25 mg twice daily x 4 days. Then take once daily in morning x 3 more days. Finish on 12/31 Folic Acid (Folic Acid) 1 Mg Tab 1 MG PO QAM for 30 Days, #30 TAB Gabapentin (Gabapentin) 300 Mg Cap 300 MG PO TID for 30 Days, #90 CAP Metoprolol Tartrate (Lopressor) 25 Mg Tab 25 MG PO TID for 30 Days, #90 TAB Multivitamins/Minerals (Certavite/Antioxidants) 1 Tab Tab 1 TAB PO QAM for 30 Days, #30 TAB Pantoprazole (Pantoprazole Sodium) 40 Mg Tab 40 MG PO QAM for 30 Days, #30 TAB Sucralfate (Sucralfate) 1 Gm/10 Ml Susp 1 GM PO QID PRN for GI Upset for 14 Days, #1 BTL 1 Refill Thiamine HCl (Vitamin B-1) 100 Mg Tab 200 MG PO BID for 30 Days, #120 TAB Discharge Exam The patient was seen and examined this morning. Pt reports doing better today. He admits to having a frontal headache, but that its tolerable. He denies nausea , vomiting, shaking/tremors or other withdrawal symptoms. He is planning on having his human service technician help him with alcohol cessation and counseling as an outpatient. Review of Systems: Constitutional: + fatigue, No fever, No chills Eyes: No worsening of vision, No diplopia ENT: No sore throat, No tinnitus, No trouble swallowing Respiratory: No shortness of breath, No dyspnea on exertion Cardiovascular: No chest pain, No edema, No claudication Abdomen: No pain, No nausea, No vomiting, No diarrhea, No constipation Musculoskeletal: No muscle pain, No swelling Neurologic: No weakness, No numbness/tingling Endocrine: No fatigue Integumentary: No rash, No itch (Izabella Murphy, YONG) Hospital Course History of Present Illness Source: patient 66 y/o M Hx ETOH abuse. Pt was brought to the ER intoxicated when his called EMS and stated that he felt he was attempting to harm himself. He was retained in the ER for several hours to achieve sobriety and undergo a mental health evaluation. Following evaluation the pt was slated for DC, however, he developed rigors, diaphoresis and chest pain. He responded to 2mg of Ativan. The pt is a very poor historian. He admits to central CP but could not recall if he was short of breath, nauseous or lightheaded. He states that he has had CP a few times in the past. Physical Exam Vital Signs Date Time Temp Pulse Resp B/P (MAP) Pulse Ox O2 Delivery O2 Flow Rate FiO2 12/21/16 02:03 73 16 167/97 93 Room Air 12/21/16 00:27 75 12/20/16 23:06 84 18 161/100 93 Room Air 12/20/16 21:34 92 Room Air 12/20/16 21:28 86 12/20/16 20:49 81 18 110/86 92 Room Air 12/20/16 18:45 88 18 108/83 91 Room Air 12/20/16 16:47 92 20 95/57 91 Room Air 12/20/16 15:43 89 17 112/59 92 Room Air 12/20/16 14:34 89 137/96 97 Nasal Cannula 2.0 12/20/16 14:33 97 Nasal Cannula 2.0 12/20/16 14:16 36.8 95 24 182/168 98 Room Air 12/20/16 14:11 90 General Appearance: WD/WN, no apparent distress Head: normocephalic Eyes: normal inspection ENT: normal ENT inspection, pharynx normal Neck: supple, no JVD Respiratory/Chest: chest non-tender, lungs clear, normal breath sounds Cardiovascular: regular rate, rhythm, no edema, no gallop Abdomen/GI: normal bowel sounds, non tender, soft Back: normal inspection, no CVA tenderness Extremities/Musculoskelatal: normal inspection, no calf tenderness, normal capillary refill Neurologic/Psych: internet marketing specialist II-XII nml as tested, no motor/sensory deficits, alert, oriented x 3 Skin: normal color, warm/dry Hospital Course: Mr. Kirkpatrick is a 66 y/o man with history of alcohol abuse. Pt was brought to the ER intoxicated when his called EMS and stated that he felt he was attempting to harm himself. He was retained in the ER for several hours to achieve sobriety and undergo a mental health evaluation. Following evaluation the pt was slated for DC, however, he developed rigors, diaphoresis and chest pain. He responded to 2mg of Ativan. Alcohol intoxication- RESOLVED and withdrawal- STABLE: - Admitted to tele for cardiac monitoring- no acute events - Alcohol withdrawal protocol - IV banana bag daily while inpatient. Continue Gabapentin 300 mg TID and Librium 25 mg BID x 4 more days, then 25 mg daily x 3 more days to finish taper. - Psychiatry consulted, appreciate recommendations- patient wishes to pursue outpatient help through his congregation on his own - Cessation encouraged at bedside. CP- RESOLVED: - No acute events on tele - ASA 81 mg daily - Trended cardiac enzymes- negative HTN: - Metoprolol 25 mg TID due to elevated BP- continue at time of discharge, PCP has been requested for fu within 1-2 weeks. - Hydralazine IV PRN SOB- RESOLVED: - CXR w/ no acute processes - Combivent QID Hypomagnesemia: Replaced w/ IV Mag supplement. Follow mag level and replace PRN Hypoglycemia- RESOLVED Depression: Psychiatry consulted- follow outpatient w/ PCP GI prophylaxis: Protonix + Carafate DVT prophylaxis: TEDs/SCDs, ambulation Code Status: LEVEL I, FULL Dispo: Discharge to home once medically stable, today. Total Time Spent: Greater than 30 minutes This includes examination of the patient, discharge planning, medication reconciliation, and communication with other providers. (Izabella Murphy PA-C) Attending Attestation: Pt seen/examined, chart reviewed, discharge care plan d/w AURELIA Murphy. I agree w/ the nobles components of her discharge summary. 66yo male who presented with alcohol intoxication. He was placed on alcohol withdrawal protocol and appeared to show no significant withdrawal symptoms during his stay. He did have significantly elevated blood pressures that responded to metoprolol. I was unclear if this was due to untreated essential HTN or could have been due to underlying withdrawal. Either way he did well during his stay. Psychiatry was involved in his care and unfortunately he declined all forms of help to stay sober following his discharge. Discharge exam - gen - NAD mouth - MMM neck - no JVD heart - RRR lungs - minimal end-exp wheezing abd - soft, NT, ND, BS+, no HSM ext - no edema Ryan Barrow MD (Ryan Barrow MD) Discharge Instructions Please refer to the electronic Patient Visit Report (Discharge Instructions) for additional information. (Izabella Murphy PA-C) Follow-Up Follow up with your Primary Care Provider within 1-2 weeks. (Izabella Murphy PA-C) Additional Copies To Scott Teresa D.O.
== END 2016-12-24 12:05 | disposition home or self-care (01) | DRG 897 ==
LOC: EDBD 14:02 → C.EDB 14:05 → C.2T 12-21 02:18 → ENRESERV 12-21 02:27
PROVIDERS: ADMIT Internal Medicine; ATTEND Internal Medicine
DX: F10.229 Alcohol dependence with intoxication, unspecified (principal); F32.1 Major depressive disorder, single episode, moderate; F10.239 Alcohol dependence with withdrawal, unspecified; R07.81 Pleurodynia; K21.9 Gastro-esophageal reflux disease without esophagitis; Z87.891 Personal history of nicotine dependence; I10 Essential (primary) hypertension; E83.42 Hypomagnesemia; E16.2 Hypoglycemia, unspecified

== ENCOUNTER → 2016-12-27 | Outpatient (CLI) | payer OTHER ==
[~2016-12-27] MED LIST changes: +ASPEC81 PO; +CNT PO; +CRFUDL PO; +FLV1 PO; -FOLI1TAB7 PO; +LBR25 PO; +LPR25 PO; +NRN300 PO; -ONDA4TAB10 SL; +PRT40 PO; -THIA100T11 PO; +THM100 PO
[2016-12-27 13:09] LABS: ALT/SGPT 51 U/L (12-78); BLOOD UREA NITROGEN 11 mg/dl (7-18); BUN/CREATININE RATIO 14.7 (10-20); CALCIUM 9.7 mg/dl (8.5-10.1); CARBON DIOXIDE 28 mmol/L (21-32); CHLORIDE 106 mmol/L (98-107); CHOLESTEROL 194 mg/dl (0-200); CREATININE 0.74 mg/dl (0.60-1.40); GLUCOSE 101 mg/dl (70-99); SODIUM 139 mmol/L (136-145); TRIGLYCERIDES 76 mg/dl (0-150); VERY LOW DENSITY LIPOPROT CALC 15 mg/dl
[2016-12-27 13:12] LABS: ALB/GLOB RATIO 1.1 (0.9-2); ALKALINE PHOSPHATASE 86 U/L (45-117); AST/SGOT 30 U/L (15-37); CHOLESTEROL/HDL RATIO 2.1; HDL CHOLESTEROL 93 mg/dl; LDL CHOLESTEROL CALCULATED 86 mg/dl
== END | disposition home or self-care (01) ==
LOC: C.LAB 11:28
PROVIDERS: ATTEND Neuromusculoskeletal Medicine & OMM
DX: Z00.00 Encounter for general adult medical examination without abnormal findings (principal)

== ENCOUNTER 2017-02-12 13:42 | Emergency (ER) | payer OTHER ==
[~2017-02-12] VITALS: Ht 170.2 cm; Wt 74.0 kg
[2017-02-12 13:46] VITALS: TEMP 36.9; Ht 170.2 cm; Wt 74.0 kg
[2017-02-12] MEDS: XYLOCAINE 1%/SOD BICARB 20 ML VIAL INFIL STA ×2 (13:56→14:50)
[2017-02-12] MEDS ORDERED: BUPIVACAINE 0.5 % 5 MG/1 ML MPF 30ML VIAL INFIL STA (13:56)
[2017-02-12] MEDS ORDERED: DIPHTHERIA/TETANUS/PERTUSSIS 0.5 ML SYR/VIAL IM. ONE (14:00)
--- NOTE | 2017-02-12 14:25 | EMERGENCY ROOM VISIT NOTE ---
ED Visit Note First contact with patient: 13:47 CHIEF COMPLAINT: Finger laceration HISTORY OF PRESENT ILLNESS: This 67 year old male patient presents to the emergency department, via POV with his son, approximately 30 minutes after cutting the left middle, ring, and little fingers with a circular table saw. The patient was using the saw to cut wood, when his hand slipped into the saw, cutting his fingers. The bleeding has not stopped. Denies weakness or numbness of the finger. The patient has full range of motion of the fingers. The patient rates the pain as throbbing and 5/10. The patient denies any other injuries. The patient's tetanus shot is not up to date. REVIEW OF SYSTEMS: A 6 system review of systems was completed with positives and pertinent negatives listed in the HPI. ALLERGIES: none MEDICATIONS: None PMH: None SOCIAL HISTORY: The patient lives locally with family. He denies drug, alcohol use. He admits to tobacco use. PHYSICAL EXAM: Vital Signs: Reviewed Nurse's notes, vital signs stable. GENERAL : This is a 67-year-old [facility] male, in no acute distress, well developed, well nourished. SKIN: There is a 3.5 cm long, irregular laceration on the anteriomedial aspect of the middle finger. There is a 1cm long irregular laceration on the posterior aspect of the middle finger. There is a 2cm long laceration on the posteriomedial aspect of the ring finger which goes through the nail and is open to bone below. The patient does maintain full extension of the ring finger. There is a 1cm long irregular laceration through the medial aspect of the little finger. The edges of all lacerations gape apart with traction. There is no foreign material in the wounds and they look clean. There is active bleeding. No deep structures such as tendons, bones, or significant blood vessels are seen in the base of the wounds, with the exception of the ring finger. Extension and flexion of the finger is full and strong. Full range of motion of the wrist and other fingers. Capillary refill less than 2 seconds. Normal sensation to light and sharp touch. RADIOLOGY: X-Ray Left Hand: LEFT HAND 3 VIEWS CLINICAL HISTORY: Chainsaw laceration. FINDINGS: 3 views of the left hand are obtained. No prior studies are available for comparison at the time of dictation. The skeletal structures appear osteopenic. Bandaging material covers the third and fourth fingers. There is a comminuted fracture through the shaft and tuft of the fourth distal phalanx with distracted fragments and overlying soft tissue injury. No additional fracture is identified. Degenerative narrowing is seen at the radiocarpal articulation. Osteoarthritic change is present at the first carpometacarpal and metacarpophalangeal joints, as well as involving the interphalangeal joints. Soft tissue edema is also seen in the second and third fingers. Foci of subcutaneous gas are suggested in these digits and likely related to laceration. IMPRESSION: 1. There is a comminuted fracture through the shaft and tuft of the fourth distal phalanx with distracted fragments overlying soft tissue edema. 2. No additional fracture is seen. 3. Soft tissue edema is present in the second and third fingers. 4. Osteopenia and arthritic change as above. Electronically signed by: Kishor Kerr M.D. 02/12/2017 2:45 PM Dictated Date/Time: 02/12/2017 2:42 PM EMERGENCY DEPARTMENT COURSE: I examined the patient. X-rays obtained. The Patient was given a Tdap vaccination. An IV was initiated and he was given 1000mg Ancef. Verbal consent was obtained to perform the procedure. Using sterile technique the wound was cleansed with Betadine. 8 ml of 1% buffered lidocaine with 0.5% bupivacaine was used to perform a digital block of digits 3, 4, 5, to anesthetize the patient. The wound was washed out with [address] Carrasquillo did see and evaluate the patient at this time. At this time, I consulted with orthopedics. Dr. Vanegas was railroad conductor, and his Physician Waitress, Jose, returned my phone call. I advised him of the fracture and open wound, and he states he will speak with Dr. Vanegas and return my call. He did return the call, and Dr. Vanegas had recommended closing the wound as best as possible, bandaging with Xeroform and an extensor splint, as well as antibiotics and contact the office to be seen outpatient in follow- up on Saturday. He did state if there are any difficulties with the closure, to call back, and they would re-evaluate at that time. The area was sterilely draped. Once the patient was anesthetized, the wound was copiously irrigated under pressure with sterile saline. The wounds were explored and were as described above. The lacerations were repaired using 4 simple interrupted 5-0 nylon sutures on the little finger, 9 simple interrupted 5-0 nylon sutures on the ring finger (2 of which are through the fingernail), and 18 total simple interrupted 5-0 nylon sutures on the middle finger. The patient tolerated the procedure well. Hemostasis was achieved. The area was cleaned with sterile saline and dressed with Xeroform, gauze, and placed in a metal splint. Discharge instructions were reviewed and the patient was discharged home in good condition. I attest that I have personally reviewed the patient's current medication list. Blood Pressure Screening: Patient was found to have a slightly elevated blood pressure due to circumstances. I do not believe that the patient requires hypertension monitoring. DIFFERENTIAL DIAGNOSIS: Laceration, avulsion, amputation, tendon injury, fracture, open fracture, and others DIAGNOSIS: Laceration of multiple fingers on the left hand, open comminuted fracture of the distal phalanx of the ring finger. Problem List Medical Problems: (1) Alcohol dependence Status: Chronic Current/Historical Medications Scheduled Aspirin (Aspirin Ec), 81 MG PO DAILY Cephalexin Monohydrate (Keflex), 500 MG PO QID Scheduled PRN Oxycodone Ir (Roxicodone Ir), 1-2 TAB PO Q4H PRN for Pain Allergies Coded Allergies: No Known Allergies (Unverified , 12/05/16) Vital Signs Date Time Temp Pulse Resp B/P (MAP) Pulse Ox O2 Delivery O2 Flow Rate FiO2 02/12/17 13:46 36.9 104 18 158/100 96 Room Air Medications Administered Medications (Trade) Dose Ordered Sig/Julio Cesar Route Start Time Stop Time Status Last Admin Dose Admin Diphtheria/ Pertussis/Tetanus Vacc (Adacel Inj) 0.5 ml ONCE ONCE IM. 02/12/17 14:00 02/12/17 14:01 DC 02/12/17 14:14 0.5 ML Cefazolin Sodium (Cefazolin 1000mg Iv Push) 1,000 mg NOW STAT IV 02/12/17 15:05 02/12/17 15:10 DC 02/12/17 15:33 1,000 MG Departure Information Impression Primary Impression: Laceration of multiple sites of left hand and fingers without complication Additional Impression: Fracture of distal phalanx of ring finger Dispostion Home / Self-Care Condition GOOD Prescriptions Oxycodone Ir (Roxicodone Ir) 5 Mg Tab 1-2 TAB PO Q4H Y for Pain, #36 TAB For Initial Treatment Prov: Mely Duke PA-C 02/12/17 Cephalexin Monohydrate (Keflex) 500 Mg Cap 500 MG PO QID for 10 Days, #40 CAP Prov: Mely Duke PA-C 02/12/17 Referrals No Doctor, Assigned (PCP) Jose Vanegas, DO Patient Instructions ED Fx Finger Open, ED Laceration Ext Sutr Stap Tape, [facility] [place] Additional Instructions You have received 31 total sutures on your left fingers (4 on the pinky, 9 on the ring finger, and 18 on the middle finger). These sutures are NOT dissolvable and WILL need to be removed by a health care provider in 12-14 days (or as directed by orthopedics). You can return to the Emergency Department or contact your Primary Care Provider to have the sutures removed. Keep the dressing we have applied in place until you see orthopedics on Saturday. If the dressing falls off or gets wet, replace it with the same materials you were provided with in the ED. Keep the splint in place until follow-up with orthopedics. Do not remove it. Do not get it wet. Cephalexin(Keflex) 500mg: Take one pill four times daily for 10 days for your skin infection. All antibiotics can cause diarrhea. If this occurs and you feel worse or it does not resolve in 1-2 days follow up with your doctor or return to the Emergency Department as this could be signs of serious underlying problems. Any medication can cause an allergic reaction, stop the pills immediately and return to the ER for rash, hives, breathing difficulties, or swelling. Look for signs of infection of the wound including: increased pain, swelling, foul discharge, streaking, or increased temperature. If any of these are noticed you should return to the Emergency Department for further assessment and treatment. As with any laceration you may have received nerve damage to the surrounding tissues. This damage may or may not be permanent. You should keep the area covered with sunscreen for the first 6 months to 1 year when at risk for exposure to help minimize scarring. You can also use scar reducing creams or Vitamin E oil to help minimize scarring. For pain control, you can use the following [id number] medicines (if >12 yo): Ibuprofen(Motrin, Advil) may be used for fever or pain. Use 600mg every six hours as needed. Take with food. Avoid using more than 2400mg in a 24 hour period. Do not use 2400mg per day for more than three consecutive days without physician direction. Prolonged inappropriate use can lead to stomach upset or ulcers. (AND/OR) Acetaminophen(Tylenol) may be used for fever or pain. Use 1000mg every six hours as needed. Avoid using more than 3000mg in a 24 hour period. *You may alternate these medications every 4-6 hours. You have been prescribed OxyIR to be used for pain control. Take 1-2 tablets every 4-6 hours as needed for pain. This is a narcotic medication. You cannot drive or consume alcohol while on this medicine. This medicine should only be used for pain that cannot be controlled with [id number] pain medicines. Please contact [facility] orthopedics this evening or tomorrow or as soon as possible to schedule follow-up. Dr. Vanegas would like to see you in the office on Saturday. Return to the emergency department if your symptoms worsen despite treatment course outlined above. Problem Qualifiers Primary Impression: Laceration of multiple sites of left hand and fingers without complication Encounter type: initial encounter Qualified Codes: S61.412A - Laceration without foreign body of left hand, initial encounter; S61.219A - Laceration without foreign body of unspecified finger without damage to nail, initial encounter Additional Impression: Fracture of distal phalanx of ring finger Encounter type: initial encounter Fracture type: open Fracture alignment: displaced Laterality: left Qualified Codes: S62.635B - Displaced fracture of distal phalanx of left ring finger, initial encounter for open fracture
--- NOTE | 2017-02-12 14:46 | DIAGNOSTIC IMAGING REPORT ---
LEFT HAND 3 VIEWS CLINICAL HISTORY: Chainsaw laceration. FINDINGS: 3 views of the left hand are obtained. No prior studies are available for comparison at the time of dictation. The skeletal structures appear osteopenic. Bandaging material covers the third and fourth fingers. There is a comminuted fracture through the shaft and tuft of the fourth distal phalanx with distracted fragments and overlying soft tissue injury. No additional fracture is identified. Degenerative narrowing is seen at the radiocarpal articulation. Osteoarthritic change is present at the first carpometacarpal and metacarpophalangeal joints, as well as involving the interphalangeal joints. Soft tissue edema is also seen in the second and third fingers. Foci of subcutaneous gas are suggested in these digits and likely related to laceration. IMPRESSION: 1. There is a comminuted fracture through the shaft and tuft of the fourth distal phalanx with distracted fragments overlying soft tissue edema. 2. No additional fracture is seen. 3. Soft tissue edema is present in the second and third fingers. 4. Osteopenia and arthritic change as above. Electronically signed by: Kishor Kerr M.D. 02/12/2017 2:45 PM Dictated Date/Time: 02/12/2017 2:42 PM
[2017-02-12] MEDS ORDERED: ASPI81TA28 PO (14:55)
--- NOTE | 2017-02-12 15:04 | EMERGENCY ROOM VISIT NOTE ---
ED Visit Note First contact with patient: 14:33 This Patient was discussed with the physician assistant oceanographer, Mely Duke PA-C. The pertinent historical and physical exam findings were confirmed. I agree with the studies ordered and with the interpretations of these studies. I agree with the disposition and care plan.
[2017-02-12] MEDS ORDERED: CEFAZOLIN SOD 1000MG/5 ML IV PUSH IV STA (15:05)
[2017-02-12] MEDS ORDERED: OXYC1TAB3 PO (16:54)
[2017-02-12] MEDS ORDERED: CEPH500C PO (16:54)
[2017-02-12 17:01] VITALS: BP 144/88; PULSE 78; O2SAT 95
== END 2017-02-12 17:08 | disposition home or self-care (01) ==
LOC: C.EDB 13:45 → C.EDD 17:08
DX: S61.213A Laceration without foreign body of left middle finger without damage to nail, initial encounter (principal); S61.215A Laceration without foreign body of left ring finger without damage to nail, initial encounter; S61.217A Laceration without foreign body of left little finger without damage to nail, initial encounter; S62.605B Fracture of unspecified phalanx of left ring finger, initial encounter for open fracture; W31.2XXA Contact with powered woodworking and forming machines, initial encounter; Z23 Encounter for immunization; F17.200 Nicotine dependence, unspecified, uncomplicated; Z79.82 Long term (current) use of aspirin